=== PATIENT | male | born 1975 | race Caucasian/White ===

== ENCOUNTER 2020-07-31 13:03 | Emergency (ER) | payer OTHER, MEDICAID, SELFPAY ==
[2020-07-31 13:09] VITALS: BP 141/86; PULSE 74; RESP 14; TEMP 36.9; O2SAT 97; BMI 27.7
--- NOTE | 2020-07-31 13:14 | DI.RAD.S_ITS ---
PROCEDURE: XR LUMBAR SPINE 2-3V INDICATIONS: low back pain TECHNIQUE: 2 views of the lumbar spine were acquired. COMPARISON: None. FINDINGS: Bones: 5 [id number] vertebrae are present. There is straightening of normal lumbar lordosis . No vertebral body compression fractures. No suspicious bony lesions. Soft tissues: Overlying bowel gas pattern is normal. No suspicious soft tissue calcifications. IMPRESSION: No acute compression fracture or spondylolisthesis. Mild degenerative disc disease at L5-S1 level. Dictated by: Kervin Bahena M.D. on 07/31/2020 at 13:40 Approved by: Kervin Bahena M.D. on 07/31/2020 at 13:45
[2020-07-31 15:00] VITALS: BP 142/86; PULSE 72; O2SAT 99
--- NOTE | 2020-07-31 17:17 | ED.BACK ---
HPI - Back Pain/Injury General Chief Complaint: Back Pain/Injury Stated Complaint: Lower Lt Back Pain, Can't Sit Time Seen by Provider: 07/31/20 17:17 Source: patient Limitations: no limitations History of Present Illness HPI Narrative: 44-year-old gentleman with no significant medical history but a 10 year history of intermittent acute low back pain with spasm without associated sciatica. He was doing his usual daily activities including getting in and out of cars and trucks and heavy lifting bending twisting when his back began to bother him and by today he was having difficulty eating lifting his leg to get into his car due to pain. He reports some mild pain radiating down into the right buttock but no other sciatic type symptoms. The majority of his pain is muscle spasm around L3-4 5 bilaterally. He describes no trauma, he has not had any recent surgeries to his back, no history of IV drug use and no recent fevers or severe headaches. He describes no change to bowel or bladder habits and no perineal sensory loss. Related Data Home Medications Medication Instructions Recorded Confirmed Resmed Airsesne 10 CPAP #1 ea 06/13/18 12/13/18 Previous Rx's Medication Instructions Recorded diazepam 5 mg PO BEDTIME PRN #10 tab 07/31/20 oxycodone-acetaminophen 1 tab PO Q6H PRN #14 tab 07/31/20 Allergies Allergy/AdvReac Type Severity Reaction Status Date / Time No Known Drug Allergies Allergy Verified 07/31/20 13:11 Review of Systems Review of Systems Narrative: Remainder of complete review of systems is otherwise unremarkable except for that included in the HPI. Patient History Medical History Anxiety Obstructive sleep apnea of adult PTSD (post-traumatic stress disorder) Snoring Social History marital status: details: lives in [place] household members: spouse lives independently: Yes caregiver/support person: No housing: house Smoking Status: Unknown if ever smoked Smoking Status: Unknown if ever smoked alcohol intake frequency: holidays/special occasions only Substance Use Type: does not use Exam Narrative Exam Narrative: General: Alert appropriate in significant pain from his low back spasm Respiratory: Able to speak in full sentences, no obvious respiratory distress Skin: No obvious rashes, warm and dry Spine: No point tenderness along the thoracic or lumbar spine. No tenderness with thoracic ring. Does have specific muscle spasm bilaterally L3-4 5. Neurologic: Grossly intact no obvious asymmetries or abnormalities, reflexes are normal distally and perineal sensation is intact. Psych: appropriate insight and affect, cooperative Initial Vital Signs Initial Vital Signs: Vital Signs Temperature 98.4 F 07/31/20 13:09 Pulse Rate 74 07/31/20 13:09 Respiratory Rate 14 07/31/20 13:09 Blood Pressure 141/86 H 07/31/20 13:09 Pulse Oximetry 97 07/31/20 13:09 Course Orders Ordered: ED Orders 07/31/20 13:14 XR LSPINE 2-3 views [XR lumbar spine 2-3V] Stat Discontinued Medications Ketorolac Tromethamine (Ketorolac 30 Mg/Ml Vial) 30 mg IM NOW ONE Stop: 07/31/20 17:31 Oxycodone/Acetaminophen (Oxycodone/Acetaminophen 5/325 Tablet) 1 tab PO NOW ONE Stop: 07/31/20 17:31 Vital Signs Vital signs: Vital Signs - 8 hr 07/31/20 13:09 07/31/20 15:00 Temperature 98.4 F Pulse Rate 74 72 Respiratory Rate 14 Blood Pressure 141/86 H 142/86 H Pulse Oximetry 97 99 MDM - Back Pain/Injury Medical Records Attestation: I reviewed the patient's medical records. Lab Data Attestation: I reviewed the patient's lab results. Imaging Data X-ray lumbar spine: Radiologist's Impression: FINDINGS: Bones: 5 [id number] vertebrae are present. There is straightening of normal lumbar lordosis . No vertebral body compression fractures. No suspicious bony lesions. Soft tissues: Overlying bowel gas pattern is normal. No suspicious soft tissue calcifications. IMPRESSION: No acute compression fracture or spondylolisthesis. Mild degenerative disc disease at L5-S1 level. Dictated by: Kervin Bahena M.D. on 07/31/2020 at 13:40 MDM Narrative Medical decision making narrative: 44-year-old gentleman otherwise healthy with acute low back pain with no red flags that would suggest complications. Lumbar spine films were done through triage and were unremarkable. He has improved enough to get into his car after a shot of Toradol and a single oral Percocet. We talked about medications to help with pain and anticipated course of resolution. I will be giving him a brief course of Percocet for overt pain and diazepam for muscle spasm I cautioned him that he should not be taken simultaneously. Strongly recommended PT follow-up to prevent back pain issues in the future. He is safe for home discharge Discharge Plan Departure Patient Disposition: Home Clinical Impression: Acute back pain Instructions: DI for Low Back Pain Activity Restrictions/Additional Instructions: Thank you for coming in today I am sorry you are having so much pain. Fortunately, this pain does not have any ?red flag? symptoms that suggest we need to do anything other than help with your pain at this point. You are given a shot of Toradol and oral Percocet in the emergency room for immediate pain control Using 400 mg of ibuprofen (2 otaq-ada-urwrars pills) and 1 Tylenol every 6 hours can be very helpful in controlling pain. For severe pain you can use to ibuprofen and 1 Percocet. For muscle spasm 5 mg of Valium can be quite helpful. Valium and Percocet should not be taken at the same time. You will need to decide which works better for the pain your having-muscle relaxer verses straight pain control. I would recommend that you follow-up with your primary care physician and get a referral to physical therapy to work on stretching and core strengthening to prevent future problems I wish you the best Prescriptions: New diazepam 5 mg tablet 5 mg PO BEDTIME PRN (Reason: muscle spasm) Qty: 10 RF: 0 oxycodone-acetaminophen 5-325 mg tablet 1 tab PO Q6H PRN (Reason: pain) Qty: 14 RF: 0 No Action (DME) Resmed Airsesne 10 CPAP Qty: 1 RF: 0 Referrals: James Russell ARNP [Primary Care Provider] -
[2020-07-31] MEDS: OXYCODONE/ACETAMINOPHEN 5/325 TABLET 1 TAB PO (17:56)
[2020-07-31] MEDS: KETOROLAC 30 MG/ML VIAL IM (17:56)
[2020-07-31 17:58] VITALS: BP 144/94; PULSE 67; RESP 20; O2SAT 96
== END 2020-07-31 18:32 | disposition home or self-care (01) ==
PROVIDERS: Emergency Provider Emergency Medicine; Family Provider Registered Nurse; PCP Registered Nurse
DX: M54.5 Low back pain (principal)
CPT/HCPCS: 72100; 96372; 99283; J1885

== ENCOUNTER 2020-11-21 13:30 | Outpatient (RCR) | payer OTHER, MEDICAID, SELFPAY ==
--- NOTE | 2020-08-08 17:44 | PT.OIE ---
Current Diagnoses Low back pain (08/08/20) Muscle weakness (generalized) (08/08/20) Past Medical History (Last Reviewed 07/31/20 @ 17:40 by Henna Nicole MD) Anxiety Obstructive sleep apnea of adult PTSD (post-traumatic stress disorder) Snoring Visit Care Team Role Provider Type EVELYN Ayala Attending Provider Non-Staff Family Provider Primary Care Provider Referring Provider Specialty: Naturopathy Address: [address] [place] [address], [id number] Email: Physical Therapy Initial Evaluation PT-OP-A Visit Information Start: 08/07/20 18:32 Freq: Status: Active Protocol: Document 08/08/20 09:49 LRN (Rec: 08/08/20 12:24 LRN [id number]) Out-Patient Physical Therapy Visit Information Visit Information Visit Type Initial Evaluation Visit Start Time 09:49 Visit Stop Time 10:37 Total Visit Minutes 48 Visit Number 1 Evaluation Information Evaluation Date 08/08/20 Precautions Precautions Depression, Anxiety, PTSD PT-OP-B Current Condition Start: 08/07/20 18:32 Freq: Status: Active Protocol: Document 08/08/20 09:49 LRN (Rec: 08/08/20 12:24 LRN [id number]) Current Condition History of Current Condition Onset Date ~1 yr ago Current Complaints Stiffness of L low back. 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 He can now feel it start to go out (pain) , and has been gradually worsening and was not able to chiropractor; therefore went to ER. Was given ms relaxors and found he was able to manage with IBP and ice. He is aware he needs to change the way he lifts. He has had training with job via videos and his chiropractor has given him notes. Now, just getting in/out of car and lifting merchandise, he gets stiff and uncomfortable. He is working less hours a week. What started the worsening was constant lifting at his job for 3 hours. Prior Treatments and Tests X-rays showed no bony changes, but straightened. Chiropractic (Mindy Gates) adjustment 2 days ago and usually every 6 months. Developmental History Developmental History 9 yrs ago was rotated R and bent to picker 2 yr old 50# son and hurt back requiring him to go to ER and was told it was a strain. Has had episodes of pain, back goes out 2x/year. Treatment Goals Patient/Caregiver Goals Pt goal with therapy is to get help with proper lifting, stretching and manage self to reduce chance of it not happening again. Prior Functional Status Baseline Function- ADL's Independent Baseline Function- Mobility Independent Baseline Function- Gait Unknown Baseline Function- Work/School Works 8-9 hr days. Drives 2 hours total, commute to home takes 35-40', commute to work ~ 1 hour. Current Functional Impairments (Reported) Functional Limitations- ADL's Sitting, driving longer than 45'. Functional Limitations- Mobility/Gait L LBP with initial gait after sitting for first 10 minutes. Functional Limitations- Work/School L LBP at end of day rated 4/10 Personal Factors Other Personal Factors That May Effect Depression, Anxiety, PTSD, has Therapy/Recovery had therapy. PT-OP-C Subjective Start: 08/07/20 18:32 Freq: Status: Active Protocol: Document 08/08/20 09:49 LRN (Rec: 08/08/20 12:24 LRN [id number]) Patient Questionnaires Oswestry Low Back Index Oswestry Score 12 Oswestry Impairment 1 to 19% Impaired (Score 1-19) OP-PT Pain Assessment Pain Assessment Grid Paper Pain Assessment Grid Completed Yes Location Low back Pain Location Details L LB/SIJ Intensity 4 Scale Used Numeric (0 - 10) Description Aching,Burning,Dull Description- Other Stiffness Frequency Constant Pain Aggravating Factors Changing Position,Activity, Exercise,Sitting,Lifting Pain Alleviating Factors Cold,Medication,Lying Supine Other Pain Alleviating Factors Sleeps L side, IBP Comments Pain Comments At rest pain is 2/10, after working 4/10. PT-OP-G Mobility & Gait Start: 08/07/20 18:32 Freq: Status: Active Protocol: Document 08/08/20 09:49 LRN (Rec: 08/08/20 12:24 LRN [id number]) OP Mobility Evaluation Bed Mobility Rolling Poor core stabilization Supine to and from Sit Poor core stabilization Transfers Sit to Stand Holds trunk stiff OP Gait Assessment Gait Gait Assistance Required: Independent Able to Maintain Weight Bearing Status Yes During Gait Assistive Devices Assistive Device None Gait Deviations General Gait Pattern Lateral Trunk Lean,Wide Based Gait Factors Limiting Gait Function Factors Limiting Gait Function Limited Range of Motion,Pain PT-OP-H Neuro Start: 08/07/20 18:32 Freq: Status: Active Protocol: Document 08/08/20 09:49 LRN (Rec: 08/08/20 12:24 LRN [id number]) Sensation Evaluation Gross Sensation Gross Sensation Left LE Impaired Sensation Description Tingling Dermatome Impairments L5 Comments Summary Comments Tingling in L lateral buttock. Deep Tendon Reflex & Clonus Assessment Deep Tendon Reflex Right Patellar Deep Tendon Reflex 2+ Normal Left Patellar Deep Tendon Reflex 2+ Normal Right Achilles Deep Tendon Reflex 2+ Normal Left Achilles Deep Tendon Reflex 4+ Brisk PT-OP-J Posture/Palpation/Skin Start: 08/07/20 18:32 Freq: Status: Active Protocol: Document 08/08/20 09:49 LRN (Rec: 08/08/20 12:24 LRN [id number]) Posture Evaluation Position Standing Head/C-Spine Posture Forward Head Comments Posture Comments R handed Shoulder high, wide stance ~ 6 , legs ER, mild anterior tilt, straight Upper thoracic, mild FH. Stands tilted left. Can't palpate SIJ, Palpation Assessment Location Low Back Palpation Location L low back Palpation Findings Tenderness Palpation Details L2, L3, L5 Spinous process - tender and stiff with PA glide L1 stiff, L4 stiff with PA glide Tender left: QL, Upper gluts, Gluteals, TFL & IT Band. PT-OP-K Range of Motion Start: 08/07/20 18:32 Freq: Status: Active Protocol: Document 08/08/20 09:49 LRN (Rec: 08/08/20 12:24 LRN [id number]) Lumbar Spine Range of Motion Lumbar Spine Active Degrees Testing Position Standing Flexion 55 Extension 15 Rotation Left 25 Rotation Right 10 Lateral Flexion Left 14 Lateral Flexion Right 15 Comments Trunk flexion is with 40 deg's hip flexion Trunk extension is with 10 deg 's hip extension. True lumbar mobility is 20 deg 's (15 deg's flex & 5 deg's ext) Hip Goniometric Range of Motion Hip Right Passive Hip ROM WFL No Testing Position Supine Straight Leg Raise 65 Left Passive Hip ROM WFL No Testing Position Supine Straight Leg Raise 55 PT-OP-L Special Tests Start: 08/07/20 18:32 Freq: Status: Active Protocol: Document 08/08/20 09:49 LRN (Rec: 08/08/20 12:24 LRN [id number]) Special Tests Lumbar Spine Special Tests Straight Leg Raise Test Results + left at 55 deg's Comments posterior thigh pain with ankle DF Slump Test Results + left Comments Posterior thigh pain Neural Special Tests- Lower Body Sciatic Nerve Tension Test Results Positive L LE Comments Pain in L LE with onset of pain at 55 deg's PSLR PT-OP-M Strength Start: 08/07/20 18:32 Freq: Status: Active Protocol: Document 08/08/20 09:49 LRN (Rec: 08/08/20 12:24 LRN [id number]) Trunk Strength Trunk Manual Muscle Testing Testing Position Supine Core Stabilization Lacks stability with movement Hip Strength Hip Manual Muscle Testing Right Flexion (L2) 5 Normal Extension (S1) 5 Normal Abduction 5 Normal Adduction 2 Poor Left Flexion (L2) 3+ Fair+ Extension (S1) 3 Fair Abduction 5 Normal Adduction 2 Poor PT-OP-Q Treatments Start: 08/07/20 18:32 Freq: Status: Active Protocol: Document 08/08/20 09:49 LRN (Rec: 08/08/20 12:24 LRN [id number]) Self-Care/Home Management Treatment Education Patient Education Body Mechanics,Home Exercise Program Other Education Discussed and educated pt in results of evaluation, goals, and plan of care, with pt being agreeable. Activities Self-Care/Home Management Activities Body mechanics training: Move with knees, exhale on exertion, Transfer training. I/S pt in HEP of trunk ext in prone. PT-OP-T Assessment and Plan Start: 08/07/20 18:32 Freq: Status: Active Protocol: Document 08/08/20 09:49 LRN (Rec: 08/08/20 12:24 LRN [id number]) Physical Therapy Assessment Rehab Potential Rehabilitation Potential Good Evaluation Complexity Number of Personal Factors/Comorbidities 1-2 Number of Body Systems Impaired 3 Clinical Presentation at Evaluation Evolving Impairments Impairments Activity Tolerance,Functional Mobility,Gait,Pain,Posture,ROM ,Soft Tissue Mobility,Strength ,Transfers Goals Three Impairment Decreased trunk/hip mobility & posture (straight back) Impairment Trunk AROM in deg's: flex 40, rot: 10 R, 25 L, SB: 14 L, 15 R. Hip mobility: PSLR: 55 deg's left Short Term Goal (STG) Pt will be educated in self care HEP of trunk mobility and postural exercises to improve lumbar lordosis and thoracic kyphosis. STG Duration 09/05/20 Nursing Home Goal (LTG) Improve trunk mobility posture . LTG Duration 11/06/20 Two Impairment Poor consistency with proper Body mechanics Impairment Pt will be able to Short Term Goal (STG) Pt will be educated in proper body mechanics for transfer, lifting and moving objects. STG Duration 08/29/20 General Assignment Reporter Goal (LTG) Pt will demonstrate proper body mechanics 90% of the time during therapy using 10-15# weights (work limit is 100#). LTG Duration 11/06/20 One Impairment Lacks appropriate self care HEP. Short Term Goal (STG) Pt will be educated in proper low back care & proper gait mechanics. STG Duration 09/05/20 Nursing Home Goal (LTG) Pt will be independent in a self care HEP of trunk & LE flexibility & strengthening exercises and balance exercises. LTG Duration 11/06/20 Assessment Summary Assessment Pt presents with signs and symptoms of L5 probable neural /disc involvement. He is positive with SLR and Grayson' s DTR is hyper-reflexive. With provocation he experiences change in sensation that is indicative of L5 involvement. The pt is very limited in trunk and L hip mobility with positive Sciatic neural tension. He has poor core stability and hip weakness with primarily the hip adductors. He demonstrates fair body mechanics but would benefit from further training. Core stabilization and LE strengthening will be important to helping him protect his lumbar region. The pt will benefit from skilled physical therapy to achieve the above stated goals . Physical Therapy Plan Frequency and Duration Frequency of Treatment 1x/Week Plan of Care Start Date 08/08/20 Plan of Care End Date 11/06/20 Therapeutic Interventions Therapeutic Interventions Home Exercise Program,Joint Mobilizations,Manual Therapy, Neuromuscular Re-education, Patient/Caregiver Education, Self-Care/Home Management,Soft Tissue Mobilization,Taping, Therapeutic Activities, Therapeutic Exercises Modalities Cold Pack/Ice Massage,Electric Stimulation,Hot Packs, Traction- Mechanical, Ultrasound Next Visit Focus/Plan Next Note Type Treatment Note Next Visit Plan Review transfer and body mechanics training/practice w/ proper breathing. Progress trunk ext program, Assess hip mobility and rotational strength; Add HEP: hip (LLE neural, ROM ), trunk ext, when pain controlled add trunk mobility; Core stabilization; MFR psoas, QL/fascia of Toldt; End modalities: manual > mechanical traction or MH/IFES . When tolerated improve trunk mobility.
--- NOTE | 2020-08-15 14:32 | PT.OTN ---
Current Diagnoses Low back pain (08/15/20) Muscle weakness (generalized) (08/15/20) Physical Therapy Treatment Note PT-OP-A Visit Information Start: 08/07/20 18:32 Freq: Status: Active Protocol: Document 08/15/20 13:01 HH (Rec: 08/15/20 14:31 HH [id number]) Out-Patient Physical Therapy Visit Information Visit Information Visit Type Treatment Note Visit Start Time 13:47 Visit Stop Time 14:30 Total Visit Minutes 43 Visit Number 2 Number of EMERGENCY PREPAREDNESS COORDINATOR Visits 0 PT-OP-B Current Condition Start: 08/07/20 18:32 Freq: Status: Active Protocol: Document 08/08/20 09:49 LRN (Rec: 08/08/20 12:24 LRN [id number]) Current Condition History of Current Condition Onset Date ~1 yr ago Current Complaints Stiffness of L low back. 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 He can now feel it start to go out (pain) , and has been gradually worsening and was not able to chiropractor; therefore went to ER. Was given ms relaxors and found he was able to manage with IBP and ice. He is aware he needs to change the way he lifts. He has had training with job via videos and his chiropractor has given him notes. Now, just getting in/out of car and lifting merchandise, he gets stiff and uncomfortable. He is working less hours a week. What started the worsening was constant lifting at his job for 3 hours. Prior Treatments and Tests X-rays showed no bony changes, but straightened. Chiropractic (Mindy Gates) adjustment 2 days ago and usually every 6 months. Developmental History Developmental History 9 yrs ago was rotated R and bent to crab picker 1 yr old 50# son and hurt back requiring him to go to ER and was told it was a strain. Has had episodes of pain, back goes out 2x/year. Treatment Goals Patient/Caregiver Goals Pt goal with therapy is to get help with proper lifting, stretching and manage self to reduce chance of it not happening again. Prior Functional Status Baseline Function- ADL's Independent Baseline Function- Mobility Independent Baseline Function- Gait Unknown Baseline Function- Work/School Works 8-9 hr days. Drives 2 hours total, commute to home takes 35-40', commute to work ~ 1 hour. Current Functional Impairments (Reported) Functional Limitations- ADL's Sitting, driving longer than 45'. Functional Limitations- Mobility/Gait L LBP with initial gait after sitting for first 10 minutes. Functional Limitations- Work/School L LBP at end of day rated 4/10 Personal Factors Other Personal Factors That May Effect Depression, Anxiety, PTSD, has Therapy/Recovery had therapy. PT-OP-C Subjective Start: 08/07/20 18:32 Freq: Status: Active Protocol: Document 08/15/20 13:01 HH (Rec: 08/15/20 14:31 HH [id number]) OP-PT Subjective Patient Comments Patient Comments Im wondering whats improve my posture for walking, lifting and stuff. My back has gotten better. Patient Reported Progress Improving PT-OP-G Mobility & Gait Start: 08/07/20 18:32 Freq: Status: Active Protocol: Document 08/08/20 09:49 LRN (Rec: 08/08/20 12:24 LRN [id number]) OP Mobility Evaluation Bed Mobility Rolling Poor core stabilization Supine to and from Sit Poor core stabilization Transfers Sit to Stand Holds trunk stiff OP Gait Assessment Gait Gait Assistance Required: Independent Able to Maintain Weight Bearing Status Yes During Gait Assistive Devices Assistive Device None Gait Deviations General Gait Pattern Lateral Trunk Lean,Wide Based Gait Factors Limiting Gait Function Factors Limiting Gait Function Limited Range of Motion,Pain PT-OP-H Neuro Start: 08/07/20 18:32 Freq: Status: Active Protocol: Document 08/08/20 09:49 LRN (Rec: 08/08/20 12:24 LRN [id number]) Sensation Evaluation Gross Sensation Gross Sensation Left LE Impaired Sensation Description Tingling Dermatome Impairments L5 Comments Summary Comments Tingling in L lateral buttock. Deep Tendon Reflex & Clonus Assessment Deep Tendon Reflex Right Patellar Deep Tendon Reflex 2+ Normal Left Patellar Deep Tendon Reflex 2+ Normal Right Achilles Deep Tendon Reflex 2+ Normal Left Achilles Deep Tendon Reflex 4+ Brisk PT-OP-J Posture/Palpation/Skin Start: 08/07/20 18:32 Freq: Status: Active Protocol: Document 08/08/20 09:49 LRN (Rec: 08/08/20 12:24 LRN [id number]) Posture Evaluation Position Standing Head/C-Spine Posture Forward Head Comments Posture Comments R handed Shoulder high, wide stance ~ 6 , legs ER, mild anterior tilt, straight Upper thoracic, mild FH. Stands tilted left. Can't palpate SIJ, Palpation Assessment Location Low Back Palpation Location L low back Palpation Findings Tenderness Palpation Details L2, L3, L5 Spinous process - tender and stiff with PA glide L1 stiff, L4 stiff with PA glide Tender left: QL, Upper gluts, Gluteals, TFL & IT Band. PT-OP-K Range of Motion Start: 08/07/20 18:32 Freq: Status: Active Protocol: Document 08/08/20 09:49 LRN (Rec: 08/08/20 12:24 LRN [id number]) Lumbar Spine Range of Motion Lumbar Spine Active Degrees Testing Position Standing Flexion 55 Extension 15 Rotation Left 25 Rotation Right 10 Lateral Flexion Left 14 Lateral Flexion Right 15 Comments Trunk flexion is with 40 deg's hip flexion Trunk extension is with 10 deg 's hip extension. True lumbar mobility is 20 deg 's (15 deg's flex & 5 deg's ext) Hip Goniometric Range of Motion Hip Right Passive Hip ROM WFL No Testing Position Supine Straight Leg Raise 65 Left Passive Hip ROM WFL No Testing Position Supine Straight Leg Raise 55 PT-OP-L Special Tests Start: 08/07/20 18:32 Freq: Status: Active Protocol: Document 08/08/20 09:49 LRN (Rec: 08/08/20 12:24 LRN [id number]) Special Tests Lumbar Spine Special Tests Straight Leg Raise Test Results + left at 55 deg's Comments posterior thigh pain with ankle DF Slump Test Results + left Comments Posterior thigh pain Neural Special Tests- Lower Body Sciatic Nerve Tension Test Results Positive L LE Comments Pain in L LE with onset of pain at 55 deg's PSLR PT-OP-M Strength Start: 08/07/20 18:32 Freq: Status: Active Protocol: Document 08/08/20 09:49 LRN (Rec: 08/08/20 12:24 LRN [id number]) Trunk Strength Trunk Manual Muscle Testing Testing Position Supine Core Stabilization Lacks stability with movement Hip Strength Hip Manual Muscle Testing Right Flexion (L2) 5 Normal Extension (S1) 5 Normal Abduction 5 Normal Adduction 2 Poor Left Flexion (L2) 3+ Fair+ Extension (S1) 3 Fair Abduction 5 Normal Adduction 2 Poor PT-OP-Q Treatments Start: 08/07/20 18:32 Freq: Status: Active Protocol: Document 08/15/20 13:01 (Rec: 08/15/20 14:31 [id number]) Therapeutic Exercises Supine Exercises pelvic tilt Reps/Minutes 8 x2 Comments cues on PPT, for HEP piriformis stretch Side left Reps/Minutes 15s x 5 Comments for HEP knee to chest Reps/Minutes 15s x5 Comments for HEP, rpeorts of good relief Manual Therapy Treatment Soft Tissue Mobilization paraspinals Body Location bilateral lumbar Mobilization Type Myofascial Release,Sustained Pressure,Trigger Point Release Intensity/Depth Moderate Body Position Prone Comments tonicity L>R, good reponse QL Body Location bilateral Mobilization Type Myofascial Release,Sustained Pressure,Trigger Point Release Intensity/Depth Moderate Body Position Prone Comments tonicity L>R, good reponse PT-OP-T Assessment and Plan Start: 08/07/20 18:32 Freq: Status: Active Protocol: Document 08/15/20 13:01 (Rec: 08/15/20 14:31 [id number]) Physical Therapy Assessment Goals Three Impairment Decreased trunk/hip mobility & posture (straight back) Impairment Trunk AROM in deg's: flex 40, rot: 10 R, 25 L, SB: 14 L, 15 R. Hip mobility: PSLR: 55 deg's left Short Term Goal (STG) Pt will be educated in self care HEP of trunk mobility and postural exercises to improve lumbar lordosis and thoracic kyphosis. STG Duration 09/05/20 Senior Oracle Database Administrator Goal (LTG) Improve trunk mobility posture . LTG Duration 11/06/20 Two Impairment Poor consistency with proper Body mechanics Impairment Pt will be able to Short Term Goal (STG) Pt will be educated in proper body mechanics for transfer, lifting and moving objects. STG Duration 08/29/20 Senior Oracle Database Administrator Goal (LTG) Pt will demonstrate proper body mechanics 90% of the time during therapy using 10-15# weights (work limit is 100#). LTG Duration 11/06/20 One Impairment Lacks appropriate self care HEP. Short Term Goal (STG) Pt will be educated in proper low back care & proper gait mechanics. STG Duration 09/05/20 Mcc Goal (LTG) Pt will be independent in a self care HEP of trunk & LE flexibility & strengthening exercises and balance exercises. LTG Duration 11/06/20 Assessment Summary Assessment initiated manual therapy and noticed pt has very good reponse with less stiffness. Added knee to chest, piriformis stretch and pelvic tilt. Pt does need cues to engage PPT. Physical Therapy Plan Frequency and Duration Frequency of Treatment 1x/Week Plan of Care Start Date 08/08/20 Plan of Care End Date 11/06/20 Therapeutic Interventions Therapeutic Interventions Home Exercise Program,Joint Mobilizations,Manual Therapy, Neuromuscular Re-education, Patient/Caregiver Education, Self-Care/Home Management,Soft Tissue Mobilization,Taping, Therapeutic Activities, Therapeutic Exercises Modalities Cold Pack/Ice Massage,Electric Stimulation,Hot Packs, Traction- Mechanical, Ultrasound Next Visit Focus/Plan Next Note Type Treatment Note Next Visit Plan Review transfer and body mechanics training/practice w/ proper breathing. Progress trunk ext program, Assess hip mobility and rotational strength; Add HEP: hip (LLE neural, ROM ), trunk ext, when pain controlled add trunk mobility; Core stabilization; MFR psoas, QL/fascia of Toldt; End modalities: manual > mechanical traction or MH/IFES . When tolerated improve trunk mobility.
--- NOTE | 2020-08-29 14:42 | PT.OTN ---
Current Diagnoses Low back pain (08/29/20) Muscle weakness (generalized) (08/29/20) Physical Therapy Treatment Note PT-OP-A Visit Information Start: 08/07/20 18:32 Freq: Status: Active Protocol: Document 08/29/20 13:50 HH (Rec: 08/29/20 14:33 HH [id number]) Out-Patient Physical Therapy Visit Information Visit Information Visit Type Treatment Note Visit Start Time 13:48 Visit Stop Time 14:30 Total Visit Minutes 42 Visit Number 3 Number of REINFORCING STEEL WORKER WIRE MESH Visits 0 PT-OP-B Current Condition Start: 08/07/20 18:32 Freq: Status: Active Protocol: Document 08/08/20 09:49 LRN (Rec: 08/08/20 12:24 LRN [id number]) Current Condition History of Current Condition Onset Date ~1 yr ago Current Complaints Stiffness of L low back. 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 He can now feel it start to go out (pain) , and has been gradually worsening and was not able to chiropractor; therefore went to ER. Was given ms relaxors and found he was able to manage with IBP and ice. He is aware he needs to change the way he lifts. He has had training with job via videos and his chiropractor has given him notes. Now, just getting in/out of car and lifting merchandise, he gets stiff and uncomfortable. He is working less hours a week. What started the worsening was constant lifting at his job for 3 hours. Prior Treatments and Tests X-rays showed no bony changes, but straightened. Chiropractic (Mindy Gates) adjustment 2 days ago and usually every 6 months. Developmental History Developmental History 9 yrs ago was rotated R and bent to pick up man 1 yr old 50# son and hurt back requiring him to go to ER and was told it was a strain. Has had episodes of pain, back goes out 2x/year. Treatment Goals Patient/Caregiver Goals Pt goal with therapy is to get help with proper lifting, stretching and manage self to reduce chance of it not happening again. Prior Functional Status Baseline Function- ADL's Independent Baseline Function- Mobility Independent Baseline Function- Gait Unknown Baseline Function- Work/School Works 8-9 hr days. Drives 2 hours total, commute to home takes 35-40', commute to work ~ 1 hour. Current Functional Impairments (Reported) Functional Limitations- ADL's Sitting, driving longer than 45'. Functional Limitations- Mobility/Gait L LBP with initial gait after sitting for first 10 minutes. Functional Limitations- Work/School L LBP at end of day rated 4/10 Personal Factors Other Personal Factors That May Effect Depression, Anxiety, PTSD, has Therapy/Recovery had therapy. PT-OP-C Subjective Start: 08/07/20 18:32 Freq: Status: Active Protocol: Document 08/29/20 13:50 HH (Rec: 08/29/20 14:33 HH [id number]) OP-PT Subjective Patient Comments Patient Comments Im feeling a lot better. My hips are more mobile. I can handle my job pretty well by using my legs more at this point. I can get in and out of the car. Patient Reported Progress Improving PT-OP-G Mobility & Gait Start: 08/07/20 18:32 Freq: Status: Active Protocol: Document 08/08/20 09:49 LRN (Rec: 08/08/20 12:24 LRN [id number]) OP Mobility Evaluation Bed Mobility Rolling Poor core stabilization Supine to and from Sit Poor core stabilization Transfers Sit to Stand Holds trunk stiff OP Gait Assessment Gait Gait Assistance Required: Independent Able to Maintain Weight Bearing Status Yes During Gait Assistive Devices Assistive Device None Gait Deviations General Gait Pattern Lateral Trunk Lean,Wide Based Gait Factors Limiting Gait Function Factors Limiting Gait Function Limited Range of Motion,Pain PT-OP-H Neuro Start: 08/07/20 18:32 Freq: Status: Active Protocol: Document 08/08/20 09:49 LRN (Rec: 08/08/20 12:24 LRN [id number]) Sensation Evaluation Gross Sensation Gross Sensation Left LE Impaired Sensation Description Tingling Dermatome Impairments L5 Comments Summary Comments Tingling in L lateral buttock. Deep Tendon Reflex & Clonus Assessment Deep Tendon Reflex Right Patellar Deep Tendon Reflex 2+ Normal Left Patellar Deep Tendon Reflex 2+ Normal Right Achilles Deep Tendon Reflex 2+ Normal Left Achilles Deep Tendon Reflex 4+ Brisk PT-OP-J Posture/Palpation/Skin Start: 08/07/20 18:32 Freq: Status: Active Protocol: Document 08/08/20 09:49 LRN (Rec: 08/08/20 12:24 LRN [id number]) Posture Evaluation Position Standing Head/C-Spine Posture Forward Head Comments Posture Comments R handed Shoulder high, wide stance ~ 6 , legs ER, mild anterior tilt, straight Upper thoracic, mild FH. Stands tilted left. Can't palpate SIJ, Palpation Assessment Location Low Back Palpation Location L low back Palpation Findings Tenderness Palpation Details L2, L3, L5 Spinous process - tender and stiff with PA glide L1 stiff, L4 stiff with PA glide Tender left: QL, Upper gluts, Gluteals, TFL & IT Band. PT-OP-K Range of Motion Start: 08/07/20 18:32 Freq: Status: Active Protocol: Document 08/08/20 09:49 LRN (Rec: 08/08/20 12:24 LRN [id number]) Lumbar Spine Range of Motion Lumbar Spine Active Degrees Testing Position Standing Flexion 55 Extension 15 Rotation Left 25 Rotation Right 10 Lateral Flexion Left 14 Lateral Flexion Right 15 Comments Trunk flexion is with 40 deg's hip flexion Trunk extension is with 10 deg 's hip extension. True lumbar mobility is 20 deg 's (15 deg's flex & 5 deg's ext) Hip Goniometric Range of Motion Hip Right Passive Hip ROM WFL No Testing Position Supine Straight Leg Raise 65 Left Passive Hip ROM WFL No Testing Position Supine Straight Leg Raise 55 PT-OP-L Special Tests Start: 08/07/20 18:32 Freq: Status: Active Protocol: Document 08/08/20 09:49 LRN (Rec: 08/08/20 12:24 LRN [id number]) Special Tests Lumbar Spine Special Tests Straight Leg Raise Test Results + left at 55 deg's Comments posterior thigh pain with ankle DF Slump Test Results + left Comments Posterior thigh pain Neural Special Tests- Lower Body Sciatic Nerve Tension Test Results Positive L LE Comments Pain in L LE with onset of pain at 55 deg's PSLR PT-OP-M Strength Start: 08/07/20 18:32 Freq: Status: Active Protocol: Document 08/08/20 09:49 LRN (Rec: 08/08/20 12:24 LRN [id number]) Trunk Strength Trunk Manual Muscle Testing Testing Position Supine Core Stabilization Lacks stability with movement Hip Strength Hip Manual Muscle Testing Right Flexion (L2) 5 Normal Extension (S1) 5 Normal Abduction 5 Normal Adduction 2 Poor Left Flexion (L2) 3+ Fair+ Extension (S1) 3 Fair Abduction 5 Normal Adduction 2 Poor PT-OP-Q Treatments Start: 08/07/20 18:32 Freq: Status: Active Protocol: Document 08/29/20 13:50 HH (Rec: 08/29/20 14:33 [id number]) Therapeutic Exercises Supine Exercises pelvic tilt Reps/Minutes 8 x2 Comments no cues needed piriformis stretch Side left Reps/Minutes 15s x 5 Comments for HEP knee to chest Reps/Minutes 15s x5 Comments good relief Sitting Exercises trunk flexion stretch Sitting Exercise Name toe pull Side bilateral Reps/Minutes 5sec hold x5 Comments for HEP, cues on segmental flexion Standing Exercises paloff press Side bilateral Equipment Used level 3 Reps/Minutes 10 x2 Comments for HEP Manual Therapy Treatment Soft Tissue Mobilization paraspinals Body Location bilateral lumbar Mobilization Type Myofascial Release,Sustained Pressure,Trigger Point Release Intensity/Depth Moderate Body Position Prone Comments tonicity L>R, good reponse QL Body Location bilateral Mobilization Type Myofascial Release,Sustained Pressure,Trigger Point Release Intensity/Depth Moderate Body Position Prone Comments less tonicity noted today, good reponse PT-OP-T Assessment and Plan Start: 08/07/20 18:32 Freq: Status: Active Protocol: Document 08/29/20 13:50 (Rec: 08/29/20 14:33 [id number]) Physical Therapy Assessment Goals Three Impairment Decreased trunk/hip mobility & posture (straight back) Impairment Trunk AROM in deg's: flex 40, rot: 10 R, 25 L, SB: 14 L, 15 R. Hip mobility: PSLR: 55 deg's left Short Term Goal (STG) Pt will be educated in self care HEP of trunk mobility and postural exercises to improve lumbar lordosis and thoracic kyphosis. STG Duration 09/05/20 Assisted Goal (LTG) Improve trunk mobility posture . LTG Duration 11/06/20 Two Impairment Poor consistency with proper Body mechanics Impairment Pt will be able to Short Term Goal (STG) Pt will be educated in proper body mechanics for transfer, lifting and moving objects. STG Duration 08/29/20 Overse[place] Goal (LTG) Pt will demonstrate proper body mechanics 90% of the time during therapy using 10-15# weights (work limit is 100#). LTG Duration 11/06/20 One Impairment Lacks appropriate self care HEP. Short Term Goal (STG) Pt will be educated in proper low back care & proper gait mechanics. STG Duration 09/05/20 Assisted Goal (LTG) Pt will be independent in a self care HEP of trunk & LE flexibility & strengthening exercises and balance exercises. LTG Duration 11/06/20 Assessment Summary Assessment Pt reports good progress so far with improved mobility and activity tolerance. Added seated trunk flexion and paloff press for core stabilization since pt stated he does plent of rotation to lift at work. Physical Therapy Plan Frequency and Duration Frequency of Treatment 1x/Week Plan of Care Start Date 08/08/20 Plan of Care End Date 11/06/20 Therapeutic Interventions Therapeutic Interventions Home Exercise Program,Joint Mobilizations,Manual Therapy, Neuromuscular Re-education, Patient/Caregiver Education, Self-Care/Home Management,Soft Tissue Mobilization,Taping, Therapeutic Activities, Therapeutic Exercises Modalities Cold Pack/Ice Massage,Electric Stimulation,Hot Packs, Traction- Mechanical, Ultrasound Next Visit Focus/Plan Next Note Type Treatment Note Next Visit Plan Review transfer and body mechanics training/practice w/ proper breathing. Progress trunk ext program, Assess hip mobility and rotational strength; Add HEP: hip (LLE neural, ROM ), trunk ext, when pain controlled add trunk mobility; Core stabilization; MFR psoas, QL/fascia of Toldt; End modalities: manual > mechanical traction or MH/IFES . When tolerated improve trunk mobility.
--- NOTE | 2020-09-01 16:19 | PT.OTN ---
Current Diagnoses Low back pain (09/01/20) Muscle weakness (generalized) (09/01/20) Physical Therapy Treatment Note PT-OP-A Visit Information Start: 08/07/20 18:32 Freq: Status: Active Protocol: Document 09/01/20 14:59 LRN (Rec: 09/01/20 16:15 LRN [id number]) Out-Patient Physical Therapy Visit Information Visit Information Visit Type Treatment Note Visit Start Time 14:59 Visit Stop Time 15:39 Total Visit Minutes 40 Visit Number 4 Evaluation Information Evaluation Date 08/08/20 Precautions Precautions Depression, Anxiety, PTSD PT-OP-B Current Condition Start: 08/07/20 18:32 Freq: Status: Active Protocol: Document 08/08/20 09:49 LRN (Rec: 08/08/20 12:24 LRN [id number]) Current Condition History of Current Condition Onset Date ~1 yr ago Current Complaints Stiffness of L low back. 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 He can now feel it start to go out (pain) , and has been gradually worsening and was not able to chiropractor; therefore went to ER. Was given ms relaxors and found he was able to manage with IBP and ice. He is aware he needs to change the way he lifts. He has had training with job via videos and his chiropractor has given him notes. Now, just getting in/out of car and lifting merchandise, he gets stiff and uncomfortable. He is working less hours a week. What started the worsening was constant lifting at his job for 3 hours. Prior Treatments and Tests X-rays showed no bony changes, but straightened. Chiropractic (Mindy Gates) adjustment 2 days ago and usually every 6 months. Developmental History Developmental History 9 yrs ago was rotated R and bent to medicinal plant picker 1 yr old 50# son and hurt back requiring him to go to ER and was told it was a strain. Has had episodes of pain, back goes out 2x/year. Treatment Goals Patient/Caregiver Goals Pt goal with therapy is to get help with proper lifting, stretching and manage self to reduce chance of it not happening again. Prior Functional Status Baseline Function- ADL's Independent Baseline Function- Mobility Independent Baseline Function- Gait Unknown Baseline Function- Work/School Works 8-9 hr days. Drives 2 hours total, commute to home takes 35-40', commute to work ~ 1 hour. Current Functional Impairments (Reported) Functional Limitations- ADL's Sitting, driving longer than 45'. Functional Limitations- Mobility/Gait L LBP with initial gait after sitting for first 10 minutes. Functional Limitations- Work/School L LBP at end of day rated 4/10 Personal Factors Other Personal Factors That May Effect Depression, Anxiety, PTSD, has Therapy/Recovery had therapy. PT-OP-C Subjective Start: 08/07/20 18:32 Freq: Status: Active Protocol: Document 09/01/20 14:59 LRN (Rec: 09/01/20 16:15 LRN [id number]) OP-PT Subjective Patient Comments Patient Comments States the back is better than it has ever felt. PT-OP-G Mobility & Gait Start: 08/07/20 18:32 Freq: Status: Active Protocol: Document 08/08/20 09:49 LRN (Rec: 08/08/20 12:24 LRN [id number]) OP Mobility Evaluation Bed Mobility Rolling Poor core stabilization Supine to and from Sit Poor core stabilization Transfers Sit to Stand Holds trunk stiff OP Gait Assessment Gait Gait Assistance Required: Independent Able to Maintain Weight Bearing Status Yes During Gait Assistive Devices Assistive Device None Gait Deviations General Gait Pattern Lateral Trunk Lean,Wide Based Gait Factors Limiting Gait Function Factors Limiting Gait Function Limited Range of Motion,Pain PT-OP-H Neuro Start: 08/07/20 18:32 Freq: Status: Active Protocol: Document 08/08/20 09:49 LRN (Rec: 08/08/20 12:24 LRN [id number]) Sensation Evaluation Gross Sensation Gross Sensation Left LE Impaired Sensation Description Tingling Dermatome Impairments L5 Comments Summary Comments Tingling in L lateral buttock. Deep Tendon Reflex & Clonus Assessment Deep Tendon Reflex Right Patellar Deep Tendon Reflex 2+ Normal Left Patellar Deep Tendon Reflex 2+ Normal Right Achilles Deep Tendon Reflex 2+ Normal Left Achilles Deep Tendon Reflex 4+ Brisk PT-OP-J Posture/Palpation/Skin Start: 08/07/20 18:32 Freq: Status: Active Protocol: Document 08/08/20 09:49 LRN (Rec: 08/08/20 12:24 LRN [id number]) Posture Evaluation Position Standing Head/C-Spine Posture Forward Head Comments Posture Comments R handed Shoulder high, wide stance ~ 6 , legs ER, mild anterior tilt, straight Upper thoracic, mild FH. Stands tilted left. Can't palpate SIJ, Palpation Assessment Location Low Back Palpation Location L low back Palpation Findings Tenderness Palpation Details L2, L3, L5 Spinous process - tender and stiff with PA glide L1 stiff, L4 stiff with PA glide Tender left: QL, Upper gluts, Gluteals, TFL & IT Band. PT-OP-K Range of Motion Start: 08/07/20 18:32 Freq: Status: Active Protocol: Document 08/08/20 09:49 LRN (Rec: 08/08/20 12:24 LRN [id number]) Lumbar Spine Range of Motion Lumbar Spine Active Degrees Testing Position Standing Flexion 55 Extension 15 Rotation Left 25 Rotation Right 10 Lateral Flexion Left 14 Lateral Flexion Right 15 Comments Trunk flexion is with 40 deg's hip flexion Trunk extension is with 10 deg 's hip extension. True lumbar mobility is 20 deg 's (15 deg's flex & 5 deg's ext) Hip Goniometric Range of Motion Hip Right Passive Hip ROM WFL No Testing Position Supine Straight Leg Raise 65 Left Passive Hip ROM WFL No Testing Position Supine Straight Leg Raise 55 PT-OP-L Special Tests Start: 08/07/20 18:32 Freq: Status: Active Protocol: Document 08/08/20 09:49 LRN (Rec: 08/08/20 12:24 LRN [id number]) Special Tests Lumbar Spine Special Tests Straight Leg Raise Test Results + left at 55 deg's Comments posterior thigh pain with ankle DF Slump Test Results + left Comments Posterior thigh pain Neural Special Tests- Lower Body Sciatic Nerve Tension Test Results Positive L LE Comments Pain in L LE with onset of pain at 55 deg's PSLR PT-OP-M Strength Start: 08/07/20 18:32 Freq: Status: Active Protocol: Document 08/08/20 09:49 LRN (Rec: 08/08/20 12:24 LRN [id number]) Trunk Strength Trunk Manual Muscle Testing Testing Position Supine Core Stabilization Lacks stability with movement Hip Strength Hip Manual Muscle Testing Right Flexion (L2) 5 Normal Extension (S1) 5 Normal Abduction 5 Normal Adduction 2 Poor Left Flexion (L2) 3+ Fair+ Extension (S1) 3 Fair Abduction 5 Normal Adduction 2 Poor PT-OP-Q Treatments Start: 08/07/20 18:32 Freq: Status: Active Protocol: Document 09/01/20 14:59 LRN (Rec: 09/01/20 16:15 LRN [id number]) Therapeutic Exercises Supine Exercises SKTC/Hip flexor stretch Supine Exercise Name SKTC/Hip Flexor stretch Side bilateral Reps/Minutes 15 x 5 Comments Stretch felt in gluts and anterior hip. piriformis stretch Side left Reps/Minutes 15s x 5 Comments for HEP knee to chest Supine Exercise Name Jhon KTC stretch Reps/Minutes 15s x5 Comments good relief Sitting Exercises trunk flexion stretch Sitting Exercise Name toe pull Side bilateral Reps/Minutes 5sec hold x5 Comments for HEP, cues on segmental flexion Standing Exercises Hip Flexor stretch Standing Exercise Name Hip Flexor stretch Side bilateral Reps/Minutes 1x paloff press Standing Exercise Name Paloff Press Side bilateral Equipment Used level 3 Reps/Minutes 10 x3 Comments Reviewed HEP Therapeutic Activity Therapeutic Activity Overhead lift & floor pick ups Name Overhead lift & floor pick ups Comments Pt needed verbal and physical cuing to maintaining neutral spine positioning. Proper Body mechanics Name Pusing, pulling, squat & kneel lifting, carrying Comments Pt needed verbal and physical cuing to maintaining neutral spine positioning. Transfer training Name Sit<>Supine Reps/Minutes x 3 Comments Pt needed v cuing after training, for core tightening. Self-Care/Home Management Treatment Education Patient Education Body Mechanics Other Education Pt educated in proper sit<> supine body mechanics with handout issued. Pt educated with discussion in Body Mechanics Basics with handout issued. Educated & discussed Body mechanics for pushing, pulling , carrying, lifting options related to dialy tasks, lifting & picking up objects off ground or in carts/washing machine/car trunk, lifting overhead, kneeling lift, reducing load and 2 person lifts. Activities Self-Care/Home Management Activities Re-issued previous HEP (& Lev 2 TB), of sitting FB and Paloff Press. Issued & reviewed HEP: Standing hip flexor stretch. PT-OP-T Assessment and Plan Start: 08/07/20 18:32 Freq: Status: Active Protocol: Document 09/01/20 14:59 LRN (Rec: 09/01/20 16:15 LRN [id number]) Physical Therapy Assessment Goals Three Impairment Decreased trunk/hip mobility & posture (straight back) Impairment Trunk AROM in deg's: flex 40, rot: 10 R, 25 L, SB: 14 L, 15 R. Hip mobility: PSLR: 55 deg's left Short Term Goal (STG) Pt will be educated in self care HEP of trunk mobility and postural exercises to improve lumbar lordosis and thoracic kyphosis. (09/01/20: Pt educated in trunk flex and hip mobility home ex's). STG Duration 09/05/20 (09/01/20: Progressing) Visitor Services Technician Goal (LTG) Improve trunk mobility posture . LTG Duration 11/06/20 Two Impairment Poor consistency with proper Body mechanics Short Term Goal (STG) Pt will be educated in proper body mechanics for transfer, lifting and moving objects. STG Duration 08/29/20 (09/01/20: MET GOAL) Visitor Services Technician Goal (LTG) Pt will demonstrate proper body mechanics 90% of the time during therapy using 10-15# weights (work limit is 100#). LTG Duration 11/06/20 One Impairment Lacks appropriate self care HEP. Short Term Goal (STG) Pt will be educated in proper low back care & proper gait mechanics. (09/01/20: Pt educated in proper LB care). STG Duration 09/05/20 (09/01/20: Progressed ) Visitor Services Technician Goal (LTG) Pt will be independent in a self care HEP of trunk & LE flexibility & strengthening exercises and balance exercises. (09/01/20: Pt has HEP for LB/ hip stretches) LTG Duration 11/06/20 (09/01/20: Progressing) Progress Towards Goals Progress Comments Progressed HEP. Assessment Summary Assessment Pt has fairly good knowledge of his HEP. His pain has lessened but he shows reduced awareness of his core and ability to maintain stability. Pt had good understanding of proper body mechanics except for picking up light objectos off ground (golf ball). Physical Therapy Plan Frequency and Duration Frequency of Treatment 1x/Week Plan of Care Start Date 08/08/20 Plan of Care End Date 11/06/20 Next Visit Focus/Plan Next Note Type Treatment Note Next Visit Plan Assess if pt is able to transfer and perform proper body mechanics w/proper breathing. Progress trunk ext program, Assess hip mobility and rotational strength; Add HEP: hip (LLE neural stretch), add trunk ext mobility & Core stabilization; improve trunk ext. ?MFR psoas, QL/fascia of Toldt ; End modalities: manual > mechanical traction or MH/IFES if needed. Address proper gait mechanics if needed.
--- NOTE | 2020-09-25 16:07 | PT.OTN ---
Current Diagnoses Low back pain (09/25/20) Muscle weakness (generalized) (09/25/20) Physical Therapy Treatment Note PT-OP-A Visit Information Start: 08/07/20 18:32 Freq: Status: Active Protocol: Document 09/25/20 15:09 LRN (Rec: 09/25/20 16:02 LRN [id number]) Out-Patient Physical Therapy Visit Information Visit Information Visit Type Treatment Note Visit Start Time 15:09 Visit Stop Time 15:50 Total Visit Minutes 41 Visit Number 5 Evaluation Information Evaluation Date 08/08/20 Precautions Precautions Depression, Anxiety, PTSD PT-OP-B Current Condition Start: 08/07/20 18:32 Freq: Status: Active Protocol: Document 08/08/20 09:49 LRN (Rec: 08/08/20 12:24 LRN [id number]) Current Condition History of Current Condition Onset Date ~1 yr ago Current Complaints Stiffness of L low back. 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 He can now feel it start to go out (pain) , and has been gradually worsening and was not able to chiropractor; therefore went to ER. Was given ms relaxors and found he was able to manage with IBP and ice. He is aware he needs to change the way he lifts. He has had training with job via videos and his chiropractor has given him notes. Now, just getting in/out of car and lifting merchandise, he gets stiff and uncomfortable. He is working less hours a week. What started the worsening was constant lifting at his job for 3 hours. Prior Treatments and Tests X-rays showed no bony changes, but straightened. Chiropractic (Mindy Gates) adjustment 2 days ago and usually every 6 months. Developmental History Developmental History 9 yrs ago was rotated R and bent to vegetable picker 1 yr old 50# son and hurt back requiring him to go to ER and was told it was a strain. Has had episodes of pain, back goes out 2x/year. Treatment Goals Patient/Caregiver Goals Pt goal with therapy is to get help with proper lifting, stretching and manage self to reduce chance of it not happening again. Prior Functional Status Baseline Function- ADL's Independent Baseline Function- Mobility Independent Baseline Function- Gait Unknown Baseline Function- Work/School Works 8-9 hr days. Drives 2 hours total, commute to home takes 35-40', commute to work ~ 1 hour. Current Functional Impairments (Reported) Functional Limitations- ADL's Sitting, driving longer than 45'. Functional Limitations- Mobility/Gait L LBP with initial gait after sitting for first 10 minutes. Functional Limitations- Work/School L LBP at end of day rated 4/10 Personal Factors Other Personal Factors That May Effect Depression, Anxiety, PTSD, has Therapy/Recovery had therapy. PT-OP-C Subjective Start: 08/07/20 18:32 Freq: Status: Active Protocol: Document 09/25/20 15:09 LRN (Rec: 09/25/20 16:02 LRN [id number]) OP-PT Subjective Patient Comments Patient Comments Lifting hasn't been bad, is very careful with lifting. Patient Reported Progress Improving PT-OP-G Mobility & Gait Start: 08/07/20 18:32 Freq: Status: Active Protocol: Document 08/08/20 09:49 LRN (Rec: 08/08/20 12:24 LRN [id number]) OP Mobility Evaluation Bed Mobility Rolling Poor core stabilization Supine to and from Sit Poor core stabilization Transfers Sit to Stand Holds trunk stiff OP Gait Assessment Gait Gait Assistance Required: Independent Able to Maintain Weight Bearing Status Yes During Gait Assistive Devices Assistive Device None Gait Deviations General Gait Pattern Lateral Trunk Lean,Wide Based Gait Factors Limiting Gait Function Factors Limiting Gait Function Limited Range of Motion,Pain PT-OP-H Neuro Start: 08/07/20 18:32 Freq: Status: Active Protocol: Document 08/08/20 09:49 LRN (Rec: 08/08/20 12:24 LRN [id number]) Sensation Evaluation Gross Sensation Gross Sensation Left LE Impaired Sensation Description Tingling Dermatome Impairments L5 Comments Summary Comments Tingling in L lateral buttock. Deep Tendon Reflex & Clonus Assessment Deep Tendon Reflex Right Patellar Deep Tendon Reflex 2+ Normal Left Patellar Deep Tendon Reflex 2+ Normal Right Achilles Deep Tendon Reflex 2+ Normal Left Achilles Deep Tendon Reflex 4+ Brisk PT-OP-J Posture/Palpation/Skin Start: 08/07/20 18:32 Freq: Status: Active Protocol: Document 08/08/20 09:49 LRN (Rec: 08/08/20 12:24 LRN [id number]) Posture Evaluation Position Standing Head/C-Spine Posture Forward Head Comments Posture Comments R handed Shoulder high, wide stance ~ 6 , legs ER, mild anterior tilt, straight Upper thoracic, mild FH. Stands tilted left. Can't palpate SIJ, Palpation Assessment Location Low Back Palpation Location L low back Palpation Findings Tenderness Palpation Details L2, L3, L5 Spinous process - tender and stiff with PA glide L1 stiff, L4 stiff with PA glide Tender left: QL, Upper gluts, Gluteals, TFL & IT Band. PT-OP-K Range of Motion Start: 08/07/20 18:32 Freq: Status: Active Protocol: Document 09/25/20 15:09 LRN (Rec: 09/25/20 16:02 LRN [id number]) Hip Goniometric Range of Motion Hip Right Passive Testing Position Supine Flexion w/Knee Flexed 120 Internal Rotation 40 External Rotation 40 Left Passive Testing Position Supine Flexion w/Knee Flexed 120 Internal Rotation 35 External Rotation 25 PT-OP-L Special Tests Start: 08/07/20 18:32 Freq: Status: Active Protocol: Document 08/08/20 09:49 LRN (Rec: 08/08/20 12:24 LRN [id number]) Special Tests Lumbar Spine Special Tests Straight Leg Raise Test Results + left at 55 deg's Comments posterior thigh pain with ankle DF Slump Test Results + left Comments Posterior thigh pain Neural Special Tests- Lower Body Sciatic Nerve Tension Test Results Positive L LE Comments Pain in L LE with onset of pain at 55 deg's PSLR PT-OP-M Strength Start: 08/07/20 18:32 Freq: Status: Active Protocol: Document 08/08/20 09:49 LRN (Rec: 08/08/20 12:24 LRN [id number]) Trunk Strength Trunk Manual Muscle Testing Testing Position Supine Core Stabilization Lacks stability with movement Hip Strength Hip Manual Muscle Testing Right Flexion (L2) 5 Normal Extension (S1) 5 Normal Abduction 5 Normal Adduction 2 Poor Left Flexion (L2) 3+ Fair+ Extension (S1) 3 Fair Abduction 5 Normal Adduction 2 Poor PT-OP-Q Treatments Start: 08/07/20 18:32 Freq: Status: Active Protocol: Document 09/25/20 15:09 LRN (Rec: 09/25/20 16:02 LRN [id number]) Therapeutic Exercises Supine Exercises Hip ER stretch Supine Exercise Name Fig 4 stretch, f/b active stretch Side bilateral Reps/Minutes 6' SKTC/Hip flexor stretch Supine Exercise Name SKTC & Hip Flexor (f/b active) stretch Side bilateral Reps/Minutes 1' x 1 for each with active stretch after hip flexor stretch Comments Extra time to determine max stretch for both piriformis stretch Supine Exercise Name L>R Side bilateral Reps/Minutes 15s x 5 Comments for HEP knee to chest Supine Exercise Name Jhon KTC stretch Reps/Minutes 15s x5 Comments good relief Prone Exercises FERNANDO Prone Exercise Name FERNANDO Reps/Minutes 10x Standing Exercises Golf Swing Standing Exercise Name Golf Swing with & w/o TBand Side bilateral Reps/Minutes 15 x 2, 10x with TB Comments Extra time for assiting trunk rot to max movement Wood Chop Standing Exercise Name Wood chop with & w/o TBand Side bilateral Reps/Minutes 15 x 2, 10x with TB Comments Extra time for assiting trunk rot to max movement Trunk rotation Standing Exercise Name Trunk rotation in neutral Side bilateral Equipment Used Lev 2 Reps/Minutes 10 x 3, Therapeutic Activity Therapeutic Activity Transfer training Name Stand<>Sit<>Supine Reps/Minutes x 3 Comments Pt needed phys & v cuing for proper transfer and v cuing for core tightening. Self-Care/Home Management Treatment Education Patient Education Home Exercise Program Activities Self-Care/Home Management Activities Issued and reviewed HEP: hip stretches in supine: Fig 4, Lateral hip, Piriformis x 2, Hip flexor off end of table. PT-OP-T Assessment and Plan Start: 08/07/20 18:32 Freq: Status: Active Protocol: Document 09/25/20 15:09 LRN (Rec: 09/25/20 16:02 LRN [id number]) Physical Therapy Assessment Goals Three Impairment Decreased trunk/hip mobility & posture (straight back) Impairment Trunk AROM in deg's: flex 40, rot: 10 R, 25 L, SB: 14 L, 15 R. Hip mobility: PSLR: 55 deg's left Short Term Goal (STG) Pt will be educated in self care HEP of trunk mobility and postural exercises to improve lumbar lordosis and thoracic kyphosis. (09/01/20: Pt educated in trunk flex and hip mobility home ex's). STG Duration 09/05/20 (09/01/20: Progressing) Prison Goal (LTG) Improve trunk mobility posture . LTG Duration 11/06/20 Two Impairment Poor consistency with proper Body mechanics Short Term Goal (STG) Pt will be educated in proper body mechanics for transfer, lifting and moving objects. STG Duration 08/29/20 (09/01/20: MET GOAL) Money Order Clerk Goal (LTG) Pt will demonstrate proper body mechanics 90% of the time during therapy using 10-15# weights (work limit is 100#). LTG Duration 11/06/20 One Impairment Lacks appropriate self care HEP. Short Term Goal (STG) Pt will be educated in proper low back care & proper gait mechanics. (09/01/20: Pt educated in proper LB care). (09/25/20: Pt educated in proper body mechanics for transfers. Previously educated in general proper body mechanics) STG Duration 09/05/20 (09/25/20: MET GOAL) Prison Goal (LTG) Pt will be independent in a self care HEP of trunk & LE flexibility & strengthening exercises and balance exercises. (09/01/20: Pt has HEP for LB/ hip stretches) (09/25/20: Added hip ER and hip flexor stretch in supine) LTG Duration 11/06/20 (09/25/20: Progressing) Progress Towards Goals Progress Comments Progressed HEP (hip and trunk ext stretching) Assessment Summary Assessment Pt plopped with transfer stand to sit, requiring review of proper body mechanics for transfer stand<>sit. He was able to perform transfers properly after training. Pt is very tight in his hip rotators (L is worse than R). His KTC stretch is now symmetrical in mobility although he feels L side tightness. Pt had no difficulty with active trunk rotation or FERNANDO ex. Physical Therapy Plan Frequency and Duration Frequency of Treatment 1x/Week Plan of Care Start Date 08/08/20 Plan of Care End Date 11/06/20 Next Visit Focus/Plan Next Note Type Treatment Note Next Visit Plan Recheck if pt is able to transfer and perform proper body mechanics w/proper breathing. In 5 visits, progress trunk ext program with adding FERNANDO to HEP, Assess hip rotational strength ; Add HEP: hip (LLE neural stretch), add trunk ext & rot mobility & Core stabilization; improve trunk ext. ?MFR psoas, QL/fascia of Toldt ; End modalities: manual > mechanical traction or MH/IFES if needed. Address proper gait mechanics if needed.
--- NOTE | 2020-10-02 15:56 | PT.OTN ---
Current Diagnoses Low back pain (10/02/20) Muscle weakness (generalized) (10/02/20) Physical Therapy Treatment Note PT-OP-A Visit Information Start: 08/07/20 18:32 Freq: Status: Active Protocol: Document 10/02/20 15:06 LRN (Rec: 10/02/20 15:55 LRN [id number]) Out-Patient Physical Therapy Visit Information Visit Information Visit Type Treatment Note Visit Start Time 15:06 Visit Stop Time 15:50 Total Visit Minutes 44 Visit Number 6 Evaluation Information Evaluation Date 08/08/20 Precautions Precautions Depression, Anxiety, PTSD PT-OP-B Current Condition Start: 08/07/20 18:32 Freq: Status: Active Protocol: Document 08/08/20 09:49 LRN (Rec: 08/08/20 12:24 LRN [id number]) Current Condition History of Current Condition Onset Date ~1 yr ago Current Complaints Stiffness of L low back. 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 He can now feel it start to go out (pain) , and has been gradually worsening and was not able to chiropractor; therefore went to ER. Was given ms relaxors and found he was able to manage with IBP and ice. He is aware he needs to change the way he lifts. He has had training with job via videos and his chiropractor has given him notes. Now, just getting in/out of car and lifting merchandise, he gets stiff and uncomfortable. He is working less hours a week. What started the worsening was constant lifting at his job for 3 hours. Prior Treatments and Tests X-rays showed no bony changes, but straightened. Chiropractic (Mindy Gates) adjustment 2 days ago and usually every 6 months. 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 Has had episodes of pain, back goes out 2x/year. Treatment Goals Patient/Caregiver Goals Pt goal with therapy is to get help with proper lifting, stretching and manage self to reduce chance of it not happening again. Prior Functional Status Baseline Function- ADL's Independent Baseline Function- Mobility Independent Baseline Function- Gait Unknown Baseline Function- Work/School Works 8-9 hr days. Drives 2 hours total, commute to home takes 35-40', commute to work ~ 1 hour. Current Functional Impairments (Reported) Functional Limitations- ADL's Sitting, driving longer than 45'. Functional Limitations- Mobility/Gait L LBP with initial gait after sitting for first 10 minutes. Functional Limitations- Work/School L LBP at end of day rated 4/10 Personal Factors Other Personal Factors That May Effect Depression, Anxiety, PTSD, has Therapy/Recovery had therapy. PT-OP-C Subjective Start: 08/07/20 18:32 Freq: Status: Active Protocol: Document 10/02/20 15:06 LRN (Rec: 10/02/20 15:55 LRN [id number]) OP-PT Subjective Patient Comments Patient Comments Had to do a whole route by self. Not really pain, muscles tired, rated 2/10. PT-OP-G Mobility & Gait Start: 08/07/20 18:32 Freq: Status: Active Protocol: Document 08/08/20 09:49 LRN (Rec: 08/08/20 12:24 LRN [id number]) OP Mobility Evaluation Bed Mobility Rolling Poor core stabilization Supine to and from Sit Poor core stabilization Transfers Sit to Stand Holds trunk stiff OP Gait Assessment Gait Gait Assistance Required: Independent Able to Maintain Weight Bearing Status Yes During Gait Assistive Devices Assistive Device None Gait Deviations General Gait Pattern Lateral Trunk Lean,Wide Based Gait Factors Limiting Gait Function Factors Limiting Gait Function Limited Range of Motion,Pain PT-OP-H Neuro Start: 08/07/20 18:32 Freq: Status: Active Protocol: Document 08/08/20 09:49 LRN (Rec: 08/08/20 12:24 LRN [id number]) Sensation Evaluation Gross Sensation Gross Sensation Left LE Impaired Sensation Description Tingling Dermatome Impairments L5 Comments Summary Comments Tingling in L lateral buttock. Deep Tendon Reflex & Clonus Assessment Deep Tendon Reflex Right Patellar Deep Tendon Reflex 2+ Normal Left Patellar Deep Tendon Reflex 2+ Normal Right Achilles Deep Tendon Reflex 2+ Normal Left Achilles Deep Tendon Reflex 4+ Brisk PT-OP-J Posture/Palpation/Skin Start: 08/07/20 18:32 Freq: Status: Active Protocol: Document 08/08/20 09:49 LRN (Rec: 08/08/20 12:24 LRN [id number]) Posture Evaluation Position Standing Head/C-Spine Posture Forward Head Comments Posture Comments R handed Shoulder high, wide stance ~ 6 , legs ER, mild anterior tilt, straight Upper thoracic, mild FH. Stands tilted left. Can't palpate SIJ, Palpation Assessment Location Low Back Palpation Location L low back Palpation Findings Tenderness Palpation Details L2, L3, L5 Spinous process - tender and stiff with PA glide L1 stiff, L4 stiff with PA glide Tender left: QL, Upper gluts, Gluteals, TFL & IT Band. PT-OP-K Range of Motion Start: 08/07/20 18:32 Freq: Status: Active Protocol: Document 09/25/20 15:09 LRN (Rec: 09/25/20 16:02 LRN [id number]) Hip Goniometric Range of Motion Hip Right Passive Testing Position Supine Flexion w/Knee Flexed 120 Internal Rotation 40 External Rotation 40 Left Passive Testing Position Supine Flexion w/Knee Flexed 120 Internal Rotation 35 External Rotation 25 PT-OP-L Special Tests Start: 08/07/20 18:32 Freq: Status: Active Protocol: Document 08/08/20 09:49 LRN (Rec: 08/08/20 12:24 LRN [id number]) Special Tests Lumbar Spine Special Tests Straight Leg Raise Test Results + left at 55 deg's Comments posterior thigh pain with ankle DF Slump Test Results + left Comments Posterior thigh pain Neural Special Tests- Lower Body Sciatic Nerve Tension Test Results Positive L LE Comments Pain in L LE with onset of pain at 55 deg's PSLR PT-OP-M Strength Start: 08/07/20 18:32 Freq: Status: Active Protocol: Document 08/08/20 09:49 LRN (Rec: 08/08/20 12:24 LRN [id number]) Trunk Strength Trunk Manual Muscle Testing Testing Position Supine Core Stabilization Lacks stability with movement Hip Strength Hip Manual Muscle Testing Right Flexion (L2) 5 Normal Extension (S1) 5 Normal Abduction 5 Normal Adduction 2 Poor Left Flexion (L2) 3+ Fair+ Extension (S1) 3 Fair Abduction 5 Normal Adduction 2 Poor PT-OP-Q Treatments Start: 08/07/20 18:32 Freq: Status: Active Protocol: Document 10/02/20 15:06 LRN (Rec: 10/02/20 15:55 LRN [id number]) Therapeutic Exercises Supine Exercises Lat hip stretch Supine Exercise Name Lat hip stretch Side bilateral Hip ER stretch Supine Exercise Name Fig 4 stretch, f/b active stretch Side bilateral Reps/Minutes 6' SKTC/Hip flexor stretch Supine Exercise Name SKTC & Hip Flexor (f/b active) stretch Side bilateral Reps/Minutes 1' x 1 for each with active stretch after hip flexor stretch Comments V & phys cuing foe max stretch for both piriformis stretch Supine Exercise Name L>R (leg crossed over opposite knee & knee/ankle to opp shoulder) Side bilateral Reps/Minutes 15s x 5 Comments Phys assist and cuing needed for both types of stretch knee to chest Supine Exercise Name Jhon KTC stretch Reps/Minutes 15s x5 Comments good relief Prone Exercises Upper back chest lifts Prone Exercise Name Thoracic ext prone Reps/Minutes 10x FERNANDO Prone Exercise Name FERNANDO Reps/Minutes 6' Comments Extra time for best position and set up. Manual Therapy Treatment Soft Tissue Mobilization Obliques Body Location R>L Obliques Mobilization Type Strumming Intensity/Depth Moderate Body Position Hooklying Comments Tighter R than L. Self-Care/Home Management Treatment Education Patient Education Home Exercise Program Other Education Educated pt in self oblique manual stretch. Activities Self-Care/Home Management Activities Issued & reviewed HEP of trunk (upper/lower) mobility ex, and strengthening of abdominals. PT-OP-R Modalities Start: 08/07/20 18:32 Freq: Status: Active Protocol: Document 10/02/20 15:06 LRN (Rec: 10/02/20 15:55 LRN [id number]) Hot Pack/Cold Pack Treatment Cold Pack Location Low Back Patient Position Supine Treatment Duration (minutes) 10 Patient Tolerance Good Comments Knees on bolster PT-OP-T Assessment and Plan Start: 08/07/20 18:32 Freq: Status: Active Protocol: Document 10/02/20 15:06 LRN (Rec: 10/02/20 15:55 LRN [id number]) Physical Therapy Assessment Goals Three Impairment Decreased trunk/hip mobility & posture (straight back) Impairment Trunk AROM in deg's: flex 40, rot: 10 R, 25 L, SB: 14 L, 15 R. Hip mobility: PSLR: 55 deg's left Short Term Goal (STG) Pt will be educated in self care HEP of trunk mobility and postural exercises to improve lumbar lordosis and thoracic kyphosis. (09/01/20: Pt educated in trunk flex and hip mobility home ex's, 10/02/20: Added active trunk rot in sup & thoracic ext/flex). STG Duration 09/05/20 (10/02/20: MET GOAL) Penitentiary Goal (LTG) Improve trunk mobility posture . LTG Duration 11/06/20 Two Impairment Poor consistency with proper Body mechanics Short Term Goal (STG) Pt will be educated in proper body mechanics for transfer, lifting and moving objects. STG Duration 08/29/20 (09/01/20: MET GOAL) Lmft Goal (LTG) Pt will demonstrate proper body mechanics 90% of the time during therapy using 10-15# weights (work limit is 100#). LTG Duration 11/06/20 One Impairment Lacks appropriate self care HEP. Short Term Goal (STG) Pt will be educated in proper low back care & proper gait mechanics. (09/01/20: Pt educated in proper LB care). (09/25/20: Pt educated in proper body mechanics for transfers. Previously educated in general proper body mechanics) STG Duration 09/05/20 (09/25/20: MET GOAL) Lmft Goal (LTG) Pt will be independent in a self care HEP of trunk & LE flexibility & strengthening exercises and balance exercises. (09/01/20: Pt has HEP for LB/ hip stretches) (09/25/20: Added hip ER and hip flexor stretch in supine) LTG Duration 11/06/20 (10/02/20: Progressed) Assessment Summary Assessment Pt not too familiar with HEP. Pt had difficulty with holding neutral spine in 4 pt, but did well standing against wall. Pt pain level in LB to 2/10. Pt needs further training with proper transfers /body mechanics w/proper breathing Physical Therapy Plan Frequency and Duration Frequency of Treatment 1x/Week Plan of Care Start Date 08/08/20 Plan of Care End Date 11/06/20 Next Visit Focus/Plan Next Note Type Treatment Note Next Visit Plan In 4 visits pt on Indep HEP. Monitor if pt is able to transfer and perform proper body mechanics w/proper breathing. Progress trunk ext program as tolerated, Assess hip rotational strength ; Add HEP: hip (LLE neural stretch), HEP for trunk rot & Core stabilization; improve trunk ext. ?MFR psoas, QL/fascia of Toldt ; End modalities: manual > mechanical traction or MH/IFES if needed. Address proper gait mechanics if needed.
--- NOTE | 2020-10-09 16:01 | PT.OTN ---
Current Diagnoses Low back pain (10/09/20) Muscle weakness (generalized) (10/09/20) Physical Therapy Treatment Note PT-OP-A Visit Information Start: 08/07/20 18:32 Freq: Status: Active Protocol: Document 10/09/20 15:07 LRN (Rec: 10/09/20 16:00 LRN [id number]) Out-Patient Physical Therapy Visit Information Visit Information Visit Type Treatment Note Visit Start Time 15:07 Visit Stop Time 15:45 Total Visit Minutes 38 Visit Number 7 Evaluation Information Evaluation Date 08/08/20 Precautions Precautions Depression, Anxiety, PTSD PT-OP-B Current Condition Start: 08/07/20 18:32 Freq: Status: Active Protocol: Document 08/08/20 09:49 LRN (Rec: 08/08/20 12:24 LRN [id number]) Current Condition History of Current Condition Onset Date ~1 yr ago Current Complaints Stiffness of L low back. 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 He can now feel it start to go out (pain) , and has been gradually worsening and was not able to chiropractor; therefore went to ER. Was given ms relaxors and found he was able to manage with IBP and ice. He is aware he needs to change the way he lifts. He has had training with job via videos and his chiropractor has given him notes. Now, just getting in/out of car and lifting merchandise, he gets stiff and uncomfortable. He is working less hours a week. What started the worsening was constant lifting at his job for 3 hours. Prior Treatments and Tests X-rays showed no bony changes, but straightened. Chiropractic (Mindy Gates) adjustment 2 days ago and usually every 6 months. 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 Has had episodes of pain, back goes out 2x/year. Treatment Goals Patient/Caregiver Goals Pt goal with therapy is to get help with proper lifting, stretching and manage self to reduce chance of it not happening again. Prior Functional Status Baseline Function- ADL's Independent Baseline Function- Mobility Independent Baseline Function- Gait Unknown Baseline Function- Work/School Works 8-9 hr days. Drives 2 hours total, commute to home takes 35-40', commute to work ~ 1 hour. Current Functional Impairments (Reported) Functional Limitations- ADL's Sitting, driving longer than 45'. Functional Limitations- Mobility/Gait L LBP with initial gait after sitting for first 10 minutes. Functional Limitations- Work/School L LBP at end of day rated 4/10 Personal Factors Other Personal Factors That May Effect Depression, Anxiety, PTSD, has Therapy/Recovery had therapy. PT-OP-C Subjective Start: 08/07/20 18:32 Freq: Status: Active Protocol: Document 10/09/20 15:07 LRN (Rec: 10/09/20 16:00 LRN [id number]) OP-PT Subjective Patient Comments Patient Comments Back pain is 2/10 (end of work week). Did a lot of lifting today. Neck is painful. PT-OP-G Mobility & Gait Start: 08/07/20 18:32 Freq: Status: Active Protocol: Document 08/08/20 09:49 LRN (Rec: 08/08/20 12:24 LRN [id number]) OP Mobility Evaluation Bed Mobility Rolling Poor core stabilization Supine to and from Sit Poor core stabilization Transfers Sit to Stand Holds trunk stiff OP Gait Assessment Gait Gait Assistance Required: Independent Able to Maintain Weight Bearing Status Yes During Gait Assistive Devices Assistive Device None Gait Deviations General Gait Pattern Lateral Trunk Lean,Wide Based Gait Factors Limiting Gait Function Factors Limiting Gait Function Limited Range of Motion,Pain PT-OP-H Neuro Start: 08/07/20 18:32 Freq: Status: Active Protocol: Document 08/08/20 09:49 LRN (Rec: 08/08/20 12:24 LRN [id number]) Sensation Evaluation Gross Sensation Gross Sensation Left LE Impaired Sensation Description Tingling Dermatome Impairments L5 Comments Summary Comments Tingling in L lateral buttock. Deep Tendon Reflex & Clonus Assessment Deep Tendon Reflex Right Patellar Deep Tendon Reflex 2+ Normal Left Patellar Deep Tendon Reflex 2+ Normal Right Achilles Deep Tendon Reflex 2+ Normal Left Achilles Deep Tendon Reflex 4+ Brisk PT-OP-J Posture/Palpation/Skin Start: 08/07/20 18:32 Freq: Status: Active Protocol: Document 08/08/20 09:49 LRN (Rec: 08/08/20 12:24 LRN [id number]) Posture Evaluation Position Standing Head/C-Spine Posture Forward Head Comments Posture Comments R handed Shoulder high, wide stance ~ 6 , legs ER, mild anterior tilt, straight Upper thoracic, mild FH. Stands tilted left. Can't palpate SIJ, Palpation Assessment Location Low Back Palpation Location L low back Palpation Findings Tenderness Palpation Details L2, L3, L5 Spinous process - tender and stiff with PA glide L1 stiff, L4 stiff with PA glide Tender left: QL, Upper gluts, Gluteals, TFL & IT Band. PT-OP-K Range of Motion Start: 08/07/20 18:32 Freq: Status: Active Protocol: Document 09/25/20 15:09 LRN (Rec: 09/25/20 16:02 LRN [id number]) Hip Goniometric Range of Motion Hip Right Passive Testing Position Supine Flexion w/Knee Flexed 120 Internal Rotation 40 External Rotation 40 Left Passive Testing Position Supine Flexion w/Knee Flexed 120 Internal Rotation 35 External Rotation 25 PT-OP-L Special Tests Start: 08/07/20 18:32 Freq: Status: Active Protocol: Document 08/08/20 09:49 LRN (Rec: 08/08/20 12:24 LRN [id number]) Special Tests Lumbar Spine Special Tests Straight Leg Raise Test Results + left at 55 deg's Comments posterior thigh pain with ankle DF Slump Test Results + left Comments Posterior thigh pain Neural Special Tests- Lower Body Sciatic Nerve Tension Test Results Positive L LE Comments Pain in L LE with onset of pain at 55 deg's PSLR PT-OP-M Strength Start: 08/07/20 18:32 Freq: Status: Active Protocol: Document 10/09/20 15:07 LRN (Rec: 10/09/20 16:00 LRN [id number]) Hip Strength Hip Manual Muscle Testing Right External Rotation 5 Normal Internal Rotation 5 Normal Left External Rotation 5 Normal Internal Rotation 5 Normal PT-OP-Q Treatments Start: 08/07/20 18:32 Freq: Status: Active Protocol: Document 10/09/20 15:07 LRN (Rec: 10/09/20 16:00 LRN [id number]) Therapeutic Exercises Supine Exercises Hamstring/LE neural stretch Supine Exercise Name Hamstring/LE neural stretch Side bilateral Reps/Minutes 7' Comments Extra time for max stretch positioning and understanding of ex Lat hip stretch Supine Exercise Name Lat hip stretch Side bilateral Reps/Minutes 4' Comments Phys assist and cuing needed for stretch Hip ER stretch Supine Exercise Name Fig 4 stretch, f/b active stretch Side bilateral Reps/Minutes 6' SKTC/Hip flexor stretch Supine Exercise Name SKTC & Hip Flexor (f/b active) stretch Side bilateral Reps/Minutes 1' x 1 for each with active stretch after hip flexor stretch Comments V & phys cuing foe max stretch for both piriformis stretch Supine Exercise Name L>R (leg crossed over opposite knee & knee/ankle to opp shoulder) Side bilateral Reps/Minutes 15s x 5 Comments Phys assist and cuing needed for both types of stretch knee to chest Supine Exercise Name Jhon KTC stretch Side bilateral Reps/Minutes 15s x5 Comments good relief Sitting Exercises Hamstring/LE neural stretch Sitting Exercise Name Hamstring/LE neural stretch Side bilateral Reps/Minutes 3 sets of 10 H/ankle pump x 10 Comments Extra time for max stretch positioning w/cuing for keeping back straight Self-Care/Home Management Treatment Education Patient Education Body Mechanics,Home Exercise Program Other Education Body mechanics review and training for proper form and breathing technique (lifting, moving object). Activities Self-Care/Home Management Activities Issued & reviewed HEP: Hamstring/LE neural stretch in sup & sit PT-OP-R Modalities Start: 08/07/20 18:32 Freq: Status: Active Protocol: Document 10/09/20 15:07 LRN (Rec: 10/09/20 16:00 LRN [id number]) Hot Pack/Cold Pack Treatment Cold Pack Location Neck & Low back during hip stretches Patient Position Hooklying Patient Tolerance Good PT-OP-T Assessment and Plan Start: 08/07/20 18:32 Freq: Status: Active Protocol: Document 10/09/20 15:07 LRN (Rec: 10/09/20 16:00 LRN [id number]) Physical Therapy Assessment Goals Three Impairment Decreased trunk/hip mobility & posture (straight back) Impairment Trunk AROM in deg's: flex 40, rot: 10 R, 25 L, SB: 14 L, 15 R. Hip mobility: PSLR: 55 deg's left Short Term Goal (STG) Pt will be educated in self care HEP of trunk mobility and postural exercises to improve lumbar lordosis and thoracic kyphosis. (09/01/20: Pt educated in trunk flex and hip mobility home ex's, 10/02/20: Added active trunk rot in sup & thoracic ext/flex). STG Duration 09/05/20 (10/02/20: MET GOAL) Jail Goal (LTG) Improve trunk mobility posture . LTG Duration 11/06/20 Two Impairment Poor consistency with proper Body mechanics Short Term Goal (STG) Pt will be educated in proper body mechanics for transfer, lifting and moving objects. STG Duration 08/29/20 (09/01/20: MET GOAL) Feeder Associate Goal (LTG) Pt will demonstrate proper body mechanics 90% of the time during therapy using 10-15# weights (work limit is 100#). LTG Duration 11/06/20 One Impairment Lacks appropriate self care HEP. Short Term Goal (STG) Pt will be educated in proper low back care & proper gait mechanics. (09/01/20: Pt educated in proper LB care). (09/25/20: Pt educated in proper body mechanics for transfers. Previously educated in general proper body mechanics) STG Duration 09/05/20 (09/25/20: MET GOAL) Jail Goal (LTG) Pt will be independent in a self care HEP of trunk & LE flexibility & strengthening exercises and balance exercises. (09/01/20: Pt has HEP for LB/ hip stretches) (09/25/20: Added hip ER and hip flexor stretch in supine) LTG Duration 11/06/20 (10/02/20: Progressed) Assessment Summary Assessment Review of hip stretches needed . Physical Therapy Plan Frequency and Duration Frequency of Treatment 1x/Week Plan of Care Start Date 08/08/20 Plan of Care End Date 11/06/20 Next Visit Focus/Plan Next Note Type Treatment Note Next Visit Plan In 1-3 visits pt on Indep HEP. Monitor if pt is able to transfer and perform proper body mechanics w/proper breathing. Review HEP last issued. Progress trunk ext program as tolerated. Add HEP: for trunk rot & Core stabilization ; improve trunk ext. ?MFR psoas, QL/fascia of Toldt ; End modalities: manual > mechanical traction or MH/IFES if needed. Address proper gait mechanics if needed.
--- NOTE | 2020-10-23 16:10 | PT.OTN ---
Current Diagnoses Low back pain (10/23/20) Muscle weakness (generalized) (10/23/20) Physical Therapy Treatment Note PT-OP-A Visit Information Start: 08/07/20 18:32 Freq: Status: Active Protocol: Document 10/23/20 15:09 LRN (Rec: 10/23/20 16:07 LRN [id number]) Out-Patient Physical Therapy Visit Information Visit Information Visit Type Treatment Note Visit Start Time 15:09 Visit Stop Time 15:49 Total Visit Minutes 40 Visit Number 8 Evaluation Information Evaluation Date 08/08/20 Precautions Precautions Depression, Anxiety, PTSD PT-OP-B Current Condition Start: 08/07/20 18:32 Freq: Status: Active Protocol: Document 08/08/20 09:49 LRN (Rec: 08/08/20 12:24 LRN [id number]) Current Condition History of Current Condition Onset Date ~1 yr ago Current Complaints Stiffness of L low back. 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 He can now feel it start to go out (pain) , and has been gradually worsening and was not able to chiropractor; therefore went to ER. Was given ms relaxors and found he was able to manage with IBP and ice. He is aware he needs to change the way he lifts. He has had training with job via videos and his chiropractor has given him notes. Now, just getting in/out of car and lifting merchandise, he gets stiff and uncomfortable. He is working less hours a week. What started the worsening was constant lifting at his job for 3 hours. Prior Treatments and Tests X-rays showed no bony changes, but straightened. Chiropractic (Mindy Gates) adjustment 2 days ago and usually every 6 months. Developmental History Developmental History 9 yrs ago was rotated R and bent to forklift picker 1 yr old 50# son and hurt back requiring him to go to ER and was told it was a strain. Has had episodes of pain, back goes out 2x/year. Treatment Goals Patient/Caregiver Goals Pt goal with therapy is to get help with proper lifting, stretching and manage self to reduce chance of it not happening again. Prior Functional Status Baseline Function- ADL's Independent Baseline Function- Mobility Independent Baseline Function- Gait Unknown Baseline Function- Work/School Works 8-9 hr days. Drives 2 hours total, commute to home takes 35-40', commute to work ~ 1 hour. Current Functional Impairments (Reported) Functional Limitations- ADL's Sitting, driving longer than 45'. Functional Limitations- Mobility/Gait L LBP with initial gait after sitting for first 10 minutes. Functional Limitations- Work/School L LBP at end of day rated 4/10 Personal Factors Other Personal Factors That May Effect Depression, Anxiety, PTSD, has Therapy/Recovery had therapy. PT-OP-C Subjective Start: 08/07/20 18:32 Freq: Status: Active Protocol: Document 10/23/20 15:09 LRN (Rec: 10/23/20 16:07 LRN [id number]) OP-PT Subjective Patient Comments Patient Comments Has had a few days days pain was a 5/10 but wsa able to manage it to get the pain down . Today pain is 2/10 (this is normally the end of his work week). PT-OP-G Mobility & Gait Start: 08/07/20 18:32 Freq: Status: Active Protocol: Document 08/08/20 09:49 LRN (Rec: 08/08/20 12:24 LRN [id number]) OP Mobility Evaluation Bed Mobility Rolling Poor core stabilization Supine to and from Sit Poor core stabilization Transfers Sit to Stand Holds trunk stiff OP Gait Assessment Gait Gait Assistance Required: Independent Able to Maintain Weight Bearing Status Yes During Gait Assistive Devices Assistive Device None Gait Deviations General Gait Pattern Lateral Trunk Lean,Wide Based Gait Factors Limiting Gait Function Factors Limiting Gait Function Limited Range of Motion,Pain PT-OP-H Neuro Start: 08/07/20 18:32 Freq: Status: Active Protocol: Document 08/08/20 09:49 LRN (Rec: 08/08/20 12:24 LRN [id number]) Sensation Evaluation Gross Sensation Gross Sensation Left LE Impaired Sensation Description Tingling Dermatome Impairments L5 Comments Summary Comments Tingling in L lateral buttock. Deep Tendon Reflex & Clonus Assessment Deep Tendon Reflex Right Patellar Deep Tendon Reflex 2+ Normal Left Patellar Deep Tendon Reflex 2+ Normal Right Achilles Deep Tendon Reflex 2+ Normal Left Achilles Deep Tendon Reflex 4+ Brisk PT-OP-J Posture/Palpation/Skin Start: 08/07/20 18:32 Freq: Status: Active Protocol: Document 08/08/20 09:49 LRN (Rec: 08/08/20 12:24 LRN [id number]) Posture Evaluation Position Standing Head/C-Spine Posture Forward Head Comments Posture Comments R handed Shoulder high, wide stance ~ 6 , legs ER, mild anterior tilt, straight Upper thoracic, mild FH. Stands tilted left. Can't palpate SIJ, Palpation Assessment Location Low Back Palpation Location L low back Palpation Findings Tenderness Palpation Details L2, L3, L5 Spinous process - tender and stiff with PA glide L1 stiff, L4 stiff with PA glide Tender left: QL, Upper gluts, Gluteals, TFL & IT Band. PT-OP-K Range of Motion Start: 08/07/20 18:32 Freq: Status: Active Protocol: Document 09/25/20 15:09 LRN (Rec: 09/25/20 16:02 LRN [id number]) Hip Goniometric Range of Motion Hip Right Passive Testing Position Supine Flexion w/Knee Flexed 120 Internal Rotation 40 External Rotation 40 Left Passive Testing Position Supine Flexion w/Knee Flexed 120 Internal Rotation 35 External Rotation 25 PT-OP-L Special Tests Start: 08/07/20 18:32 Freq: Status: Active Protocol: Document 08/08/20 09:49 LRN (Rec: 08/08/20 12:24 LRN [id number]) Special Tests Lumbar Spine Special Tests Straight Leg Raise Test Results + left at 55 deg's Comments posterior thigh pain with ankle DF Slump Test Results + left Comments Posterior thigh pain Neural Special Tests- Lower Body Sciatic Nerve Tension Test Results Positive L LE Comments Pain in L LE with onset of pain at 55 deg's PSLR PT-OP-M Strength Start: 08/07/20 18:32 Freq: Status: Active Protocol: Document 10/09/20 15:07 LRN (Rec: 10/09/20 16:00 LRN [id number]) Hip Strength Hip Manual Muscle Testing Right External Rotation 5 Normal Internal Rotation 5 Normal Left External Rotation 5 Normal Internal Rotation 5 Normal PT-OP-Q Treatments Start: 08/07/20 18:32 Freq: Status: Active Protocol: Document 10/23/20 15:09 LRN (Rec: 10/23/20 16:07 LRN [id number]) Therapeutic Exercises Supine Exercises Lat hip stretch Supine Exercise Name Lat hip stretch Side bilateral Reps/Minutes 3' Comments Phys assist and cuing needed for stretch Hip ER stretch Supine Exercise Name Fig 4 stretch, f/b active stretch Side bilateral Reps/Minutes 3' SKTC/Hip flexor stretch Supine Exercise Name Hip Flexor stretch Side bilateral Reps/Minutes 3' Comments V & phys cuing for max stretch for both piriformis stretch Supine Exercise Name L>R (leg crossed over opposite knee & knee/ankle to opp shoulder) Side bilateral Reps/Minutes 3' Comments Phys assist and cuing needed for both types of stretch knee to chest Supine Exercise Name Jhon KTC stretch Side bilateral Reps/Minutes 3' Comments good relief Prone Exercises FERNANDO Prone Exercise Name FERNANDO Reps/Minutes 15x2 Comments Extra time for best position and set up. Sitting Exercises Hamstring/LE neural stretch Sitting Exercise Name Hamstring/LE neural stretch Side bilateral Reps/Minutes 4' Comments Extra time for max stretch positioning w/cuing for keeping back straight Standing Exercises Wall Push ups Standing Exercise Name Wall Push ups Reps/Minutes 15x 2 Golf Swing Standing Exercise Name Golf Swing with & w/o TBand Side bilateral Equipment Used Lev 3 TB Reps/Minutes 15 x 2 Comments Extra time for assiting trunk rot to max movement Wood Chop Standing Exercise Name Wood chop with & w/o TBand Side bilateral Equipment Used Lev 3 TB Reps/Minutes 15 x 2 Comments Extra time for assiting trunk rot to max movement Therapeutic Activity Therapeutic Activity Transfer training Name Sit <> Sup training Reps/Minutes 2' Comments Pt required review and training PT-OP-R Modalities Start: 08/07/20 18:32 Freq: Status: Active Protocol: Document 10/09/20 15:07 LRN (Rec: 10/09/20 16:00 LRN [id number]) Hot Pack/Cold Pack Treatment Cold Pack Location Neck & Low back during hip stretches Patient Position Hooklying Patient Tolerance Good PT-OP-T Assessment and Plan Start: 08/07/20 18:32 Freq: Status: Active Protocol: Document 10/23/20 15:09 LRN (Rec: 10/23/20 16:07 LRN [id number]) Physical Therapy Assessment Goals Three Impairment Decreased trunk/hip mobility & posture (straight back) Impairment Trunk AROM in deg's: flex 40, rot: 10 R, 25 L, SB: 14 L, 15 R. Hip mobility: PSLR: 55 deg's left Short Term Goal (STG) Pt will be educated in self care HEP of trunk mobility and postural exercises to improve lumbar lordosis and thoracic kyphosis. (09/01/20: Pt educated in trunk flex and hip mobility home ex's, 10/02/20: Added active trunk rot in sup & thoracic ext/flex). STG Duration 09/05/20 (10/02/20: MET GOAL) Residential Goal (LTG) Improve trunk mobility posture . LTG Duration 11/06/20 Two Impairment Poor consistency with proper Body mechanics Short Term Goal (STG) Pt will be educated in proper body mechanics for transfer, lifting and moving objects. STG Duration 08/29/20 (09/01/20: MET GOAL) Resident Physician In Radiology Goal (LTG) Pt will demonstrate proper body mechanics 90% of the time during therapy using 10-15# weights (work limit is 100#). (10/23/20: Pt demonstrates proper body mechanics 80% of time, needs reminders with sit <> supine transfer). LTG Duration 11/06/20 One Impairment Lacks appropriate self care HEP. Short Term Goal (STG) Pt will be educated in proper low back care & proper gait mechanics. (09/01/20: Pt educated in proper LB care). (09/25/20: Pt educated in proper body mechanics for transfers. Previously educated in general proper body mechanics) STG Duration 09/05/20 (09/25/20: MET GOAL) Resident Physician In Radiology Goal (LTG) Pt will be independent in a self care HEP of trunk & LE flexibility & strengthening exercises and balance exercises. (09/01/20: Pt has HEP for LB/ hip stretches) (09/25/20: Added hip ER and hip flexor stretch in supine) (10/23/20: Added progressive core stab program). LTG Duration 11/06/20 (10/23/20: Progressed) Progress Towards Goals Progress Comments Progressed core stabilization with addition of DLS and trunk rot strengthening. Assessment Summary Assessment Pt gait mechanics are good; therefore gait training is not needed. Pt was able to do TBand trunk rot strengthening without complaints of pain, and he was able to perform Abdominal ex's (wall push up) without pain. DLS progression was difficulty, with pt not able to maintain core stability with leg lift ex. Pt was fatigued by work today (his end of week work week). Physical Therapy Plan Frequency and Duration Frequency of Treatment 1x/Week Plan of Care Start Date 08/08/20 Plan of Care End Date 11/06/20 Next Visit Focus/Plan Next Note Type Treatment Note Next Visit Plan 30' treatment per insurance limit. Assess trunk mobility. Add trunk rot with TB to HEP for strengthening & do strengthening with 10-15# for proper body mechanics; review HEP; DC next visit to HEP. Monitor if pt is able to transfer and perform proper body mechanics w/proper breathing. Review HEP last issued (DLS). Review progressive trunk ext program. End modalities: manual > mechanical traction or MH/IFES if needed.
--- NOTE | 2020-11-06 17:03 | PT-OP ANOTE ---
Per phone conversation the pt has had to cancel due to work schedule conflicts. He would like to come 2 more visits. Requested pt call tomorrow to reschedule his last insurance covered visit and 1 more if he chooses.
--- NOTE | 2020-11-21 16:18 | PT.OTN ---
Current Diagnoses Low back pain (11/21/20) Muscle weakness (generalized) (11/21/20) Physical Therapy Treatment Note PT-OP-A Visit Information Start: 08/07/20 18:32 Freq: Status: Active Protocol: Document 11/21/20 13:33 LRN (Rec: 11/21/20 14:17 LRN [id number]) Out-Patient Physical Therapy Visit Information Visit Information Visit Type Treatment Note Visit Start Time 13:32 Visit Stop Time 14:09 Total Visit Minutes 37 Visit Number 9 Evaluation Information Evaluation Date 08/08/20 Precautions Precautions Depression, Anxiety, PTSD PT-OP-B Current Condition Start: 08/07/20 18:32 Freq: Status: Active Protocol: Document 08/08/20 09:49 LRN (Rec: 08/08/20 12:24 LRN [id number]) Current Condition History of Current Condition Onset Date ~1 yr ago Current Complaints Stiffness of L low back. 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 He can now feel it start to go out (pain) , and has been gradually worsening and was not able to chiropractor; therefore went to ER. Was given ms relaxors and found he was able to manage with IBP and ice. He is aware he needs to change the way he lifts. He has had training with job via videos and his chiropractor has given him notes. Now, just getting in/out of car and lifting merchandise, he gets stiff and uncomfortable. He is working less hours a week. What started the worsening was constant lifting at his job for 3 hours. Prior Treatments and Tests X-rays showed no bony changes, but straightened. Chiropractic (Mindy Gates) adjustment 2 days ago and usually every 6 months. Developmental History Developmental History 9 yrs ago was rotated R and bent to poultry picking machine tender 1 yr old 50# son and hurt back requiring him to go to ER and was told it was a strain. Has had episodes of pain, back goes out 2x/year. Treatment Goals Patient/Caregiver Goals Pt goal with therapy is to get help with proper lifting, stretching and manage self to reduce chance of it not happening again. Prior Functional Status Baseline Function- ADL's Independent Baseline Function- Mobility Independent Baseline Function- Gait Unknown Baseline Function- Work/School Works 8-9 hr days. Drives 2 hours total, commute to home takes 35-40', commute to work ~ 1 hour. Current Functional Impairments (Reported) Functional Limitations- ADL's Sitting, driving longer than 45'. Functional Limitations- Mobility/Gait L LBP with initial gait after sitting for first 10 minutes. Functional Limitations- Work/School L LBP at end of day rated 4/10 Personal Factors Other Personal Factors That May Effect Depression, Anxiety, PTSD, has Therapy/Recovery had therapy. PT-OP-C Subjective Start: 08/07/20 18:32 Freq: Status: Active Protocol: Document 11/21/20 13:33 LRN (Rec: 11/21/20 14:17 LRN [id number]) OP-PT Subjective Patient Comments Patient Comments Feels he is ready to take care of himself. If he's really sore he uses heat/ice and does stretches. Notices walking better. OP-PT Pain Assessment Pain Assessment Grid Paper Pain Assessment Grid Completed Yes Location Low back Pain Location Details L LB/SIJ Intensity 1 Scale Used Numeric (0 - 10) Description Aching,Burning,Dull Frequency Intermittent Other Pain Alleviating Factors MH/Ice/Exercise. PT-OP-G Mobility & Gait Start: 08/07/20 18:32 Freq: Status: Active Protocol: Document 08/08/20 09:49 LRN (Rec: 08/08/20 12:24 LRN [id number]) OP Mobility Evaluation Bed Mobility Rolling Poor core stabilization Supine to and from Sit Poor core stabilization Transfers Sit to Stand Holds trunk stiff OP Gait Assessment Gait Gait Assistance Required: Independent Able to Maintain Weight Bearing Status Yes During Gait Assistive Devices Assistive Device None Gait Deviations General Gait Pattern Lateral Trunk Lean,Wide Based Gait Factors Limiting Gait Function Factors Limiting Gait Function Limited Range of Motion,Pain PT-OP-H Neuro Start: 08/07/20 18:32 Freq: Status: Active Protocol: Document 08/08/20 09:49 LRN (Rec: 08/08/20 12:24 LRN [id number]) Sensation Evaluation Gross Sensation Gross Sensation Left LE Impaired Sensation Description Tingling Dermatome Impairments L5 Comments Summary Comments Tingling in L lateral buttock. Deep Tendon Reflex & Clonus Assessment Deep Tendon Reflex Right Patellar Deep Tendon Reflex 2+ Normal Left Patellar Deep Tendon Reflex 2+ Normal Right Achilles Deep Tendon Reflex 2+ Normal Left Achilles Deep Tendon Reflex 4+ Brisk PT-OP-J Posture/Palpation/Skin Start: 08/07/20 18:32 Freq: Status: Active Protocol: Document 08/08/20 09:49 LRN (Rec: 08/08/20 12:24 LRN [id number]) Posture Evaluation Position Standing Head/C-Spine Posture Forward Head Comments Posture Comments R handed Shoulder high, wide stance ~ 6 , legs ER, mild anterior tilt, straight Upper thoracic, mild FH. Stands tilted left. Can't palpate SIJ, Palpation Assessment Location Low Back Palpation Location L low back Palpation Findings Tenderness Palpation Details L2, L3, L5 Spinous process - tender and stiff with PA glide L1 stiff, L4 stiff with PA glide Tender left: QL, Upper gluts, Gluteals, TFL & IT Band. PT-OP-K Range of Motion Start: 08/07/20 18:32 Freq: Status: Active Protocol: Document 11/21/20 13:33 LRN (Rec: 11/21/20 14:17 LRN [id number]) Lumbar Spine Range of Motion Lumbar Spine Active Degrees Testing Position Standing Flexion 78 Extension 15 Rotation Left 45 Rotation Right 30 Lateral Flexion Left 17 Lateral Flexion Right 12 Comments Flexion is 78 deg's with 60 deg's hip flexion. Hip Ext is 15 deg's with 15 deg's hip ext. PT-OP-L Special Tests Start: 08/07/20 18:32 Freq: Status: Active Protocol: Document 08/08/20 09:49 LRN (Rec: 08/08/20 12:24 LRN [id number]) Special Tests Lumbar Spine Special Tests Straight Leg Raise Test Results + left at 55 deg's Comments posterior thigh pain with ankle DF Slump Test Results + left Comments Posterior thigh pain Neural Special Tests- Lower Body Sciatic Nerve Tension Test Results Positive L LE Comments Pain in L LE with onset of pain at 55 deg's PSLR PT-OP-M Strength Start: 08/07/20 18:32 Freq: Status: Active Protocol: Document 10/09/20 15:07 LRN (Rec: 10/09/20 16:00 LRN [id number]) Hip Strength Hip Manual Muscle Testing Right External Rotation 5 Normal Internal Rotation 5 Normal Left External Rotation 5 Normal Internal Rotation 5 Normal PT-OP-Q Treatments Start: 08/07/20 18:32 Freq: Status: Active Protocol: Document 11/21/20 13:33 LRN (Rec: 11/21/20 14:17 LRN [id number]) Therapeutic Exercises Supine Exercises Hamstring/LE neural stretch Supine Exercise Name Hamstring/LE neural stretch Side bilateral Reps/Minutes 6' Lat hip stretch Supine Exercise Name Lat hip stretch Side bilateral Reps/Minutes 3' Comments Phys assist and cuing needed for stretch SKTC/Hip flexor stretch Supine Exercise Name Hip Flexor stretch Side bilateral Reps/Minutes 3' Comments V & phys cuing for max stretch for both piriformis stretch Supine Exercise Name L>R (leg crossed over opposite knee & knee/ankle to opp shoulder) Side bilateral Reps/Minutes 3' Comments Phys assist and cuing needed for both types of stretch Prone Exercises FERNANDO Prone Exercise Name FERNANDO Reps/Minutes 15x2 Comments Extra time for best position and set up. Standing Exercises Trunk AROM Standing Exercise Name Flex, Ext, SB, Rot Side bilateral Comments AROM taken. R SB and R rot decreased Golf Swing Standing Exercise Name Golf Swing with & w/o TBand Side bilateral Equipment Used Lev 3 TB Reps/Minutes 15 x 2 Wood Chop Standing Exercise Name Wood chop with & w/o TBand Side bilateral Equipment Used Lev 3 TB Reps/Minutes 15 x 2 Therapeutic Activity Therapeutic Activity Overhead lift & floor pick ups Name FLoor poultry picking machine tender/down 15# Reps/Minutes 3' Comments Activity from forward and sideways movement with good body mechanics and no back pain. Self-Care/Home Management Treatment Education Patient Education Home Exercise Program Other Education Body mechanics review and training for proper form and breathing technique (lifting, moving object). Activities Self-Care/Home Management Activities Issued & reviewed HEP: Trunk rotation strengthenig TBand. PT-OP-R Modalities Start: 08/07/20 18:32 Freq: Status: Active Protocol: Document 10/09/20 15:07 LRN (Rec: 10/09/20 16:00 LRN [id number]) Hot Pack/Cold Pack Treatment Cold Pack Location Neck & Low back during hip stretches Patient Position Hooklying Patient Tolerance Good PT-OP-T Assessment and Plan Start: 08/07/20 18:32 Freq: Status: Active Protocol: Document 11/21/20 13:33 LRN (Rec: 11/21/20 14:17 LRN [id number]) Physical Therapy Assessment Goals Three Impairment Decreased trunk/hip mobility & posture (straight back) Impairment Trunk AROM in deg's: flex 40, rot: 10 R, 25 L, SB: 14 L, 15 R. Hip mobility: PSLR: 55 deg's left Short Term Goal (STG) Pt will be educated in self care HEP of trunk mobility and postural exercises to improve lumbar lordosis and thoracic kyphosis. (09/01/20: Pt educated in trunk flex and hip mobility home ex's, 10/02/20: Added active trunk rot in sup & thoracic ext/flex). STG Duration 09/05/20 (10/02/20: MET GOAL) Shelter Goal (LTG) Improve trunk mobility posture . (11/21/20: Pt demonstrates neutral posture except slight increased lumbar lordosis). LTG Duration 11/06/20 (11/21/20: MET GOAL ) Two Impairment Poor consistency with proper Body mechanics Short Term Goal (STG) Pt will be educated in proper body mechanics for transfer, lifting and moving objects. STG Duration 08/29/20 (09/01/20: MET GOAL) Shelter Goal (LTG) Pt will demonstrate proper body mechanics 90% of the time during therapy using 10-15# weights (work limit is 100#). (10/23/20: Pt demonstrates proper body mechanics 80% of time, needs reminders with sit <> supine transfer). LTG Duration 11/06/20 (11/21/20: MET GOAL ) One Impairment Lacks appropriate self care HEP. Short Term Goal (STG) Pt will be educated in proper low back care & proper gait mechanics. (09/01/20: Pt educated in proper LB care). (09/25/20: Pt educated in proper body mechanics for transfers. Previously educated in general proper body mechanics) STG Duration 09/05/20 (09/25/20: MET GOAL) Plug Cutter Goal (LTG) Pt will be independent in a self care HEP of trunk & LE flexibility & strengthening exercises and balance exercises. (09/01/20: Pt has HEP for LB/ hip stretches) (09/25/20: Added hip ER and hip flexor stretch in supine) (10/23/20: Added progressive core stab program). (11/21/20: Added TBand trunk rot strengthening) LTG Duration 11/06/20 (11/21/20: MET GOAL ) Assessment Summary Assessment Pt demonstrating good knowledge of proper body mechanics per discussion of activities at home. He appears to be managing he back pain with heat/ice and his HEP. Pt posture is very good except pt encouraged to stand with TA tight. His trunk rotation is good and overall improve, but he is mildly limited with active R SB and R rotation. Pt is ready for discharge to his self care HEP . Physical Therapy Plan Discharge Physical Therapy Discharge Reasons Goals Met Discharge Comments See assessment above. Thank you for your referral.
== END 2021-03-10 09:54 ==
LOC: PHYS 13:30
PROVIDERS: Family Provider Registered Nurse; PCP Registered Nurse; Referring Provider Registered Nurse; Visit Provider Registered Nurse
DX: M62.81 Muscle weakness (generalized)
CPT/HCPCS: 97010; 97110; 97140; 97162; 97530; 97535